=== PATIENT | male | born 1960 | race Caucasian/White ===

== ENCOUNTER 2017-08-29 15:46 | Inpatient (IN) ==
[2017-08-29] MEDS ORDERED: ACETAMINOPHEN 325 MG TABLET PO ONE (16:05)
[2017-08-29] MEDS ORDERED: cefTRIAXone 1 GM VIAL IV ONE (16:12)
[2017-08-29] MEDS ORDERED: 0.9 % SODIUM CHLORIDE 1,000 ML IV ONE ×2 (16:20→17:09)
[2017-08-29 16:48] LABS: Mean Cell Volume 105.2 fL (80.0-100.0); Mean Corpuscular Hemoglobin 35.8 pg (26.0-34.0); Platelet Count 216 K/mcL (140-440); RBC 3.82 M/mcL (4.50-5.90); Red Cell Distribution Width 16.9 % (11.5-14.5)
[2017-08-29 17:13] LABS: Anisocytosis 1+ (NONE SEEN); Eosinophils % (Manual) 2 % (0-7); Lymphocytes % 5 % (15-49); Macrocytosis 2+ (NONE SEEN); Monocytes % (Manual) 4 % (1-12); Platelet Estimate NORMAL (NORMAL); RBC Morphology ABNORM (NORMAL); Segmented Neutrophils % 89 % (38-78)
[2017-08-29] MEDS ORDERED: 0.9 % SODIUM CHLORIDE 250 ML IV SCH ×2 (17:15→20:23)
[2017-08-29] MEDS ORDERED: NOREPINEPHRINE BITARTRATE 16 MG in 0.9 % SODIUM CHLORIDE 234 ML IV SCH (17:15)
[2017-08-29 17:16] LABS: ALT/SGPT 11 U/l (0-40); Albumin 4.2 gm/dL (3.2-5.2); Albumin/Globulin Ratio 1.3 (1.0-2.3); Alkaline Phosphatase 100 U/L (39-117); Blood Urea Nitrogen 36 mg/dl (6-20)
--- NOTE | 2017-08-29 17:22 | XRay Report ---
CLINICAL INFORMATION: Cough COMPARISON: 01/09/[address] FINDINGS: The heart is mildly enlarged but unchanged from 01/09/[address] Double-lumen catheter tip is in the right atrium and stable position. Mediastinum and pulmonary vessels are normal. There is minor bibasilar atelectasis. No effusions IMPRESSION: Mild stable cardiomegaly. Minor bibasilar atelectasis Interpreted and Authenticated by: Amilcar Mcdonald 08/29/17
[2017-08-29] MEDS ORDERED: INSULIN REGULAR, HUMAN 1 UNIT/0.01 ML UNIT IV ONE (17:45)
[2017-08-29] MEDS ORDERED: DEXTROSE 50% 50 ML VIAL IV ONE (17:45)
[2017-08-29] MEDS ORDERED: ALBUTEROL SULFATE 5 MG/ML NEB SOLUTION BOTTLE NEB ONE (17:45)
[2017-08-29] MEDS ORDERED: PIPERACILLIN SODIUM/TAZOBACTAM 2.25 GM in DEXTROSE 5% IN WATER 50 ML IV ONE (18:06)
--- NOTE | 2017-08-29 18:45 | Emergency Department Note ---
Weakness HPI - General Chief complaint: Weakness Stated complaint: Weakness Time Seen by Provider: 08/29/17 15:48 Source: patient Mode of arrival: wheelchair Limitations: no limitations - History of Present Illness HPI Narrative: 57-year-old male presents with cough, shortness of breath, fever, and overall weakness since yesterday. He states that he feels like he has the flu" give me some TheraFlu and I can go home". He states his main concern is that he is really weak and he can barely walk. He is on dialysis and is supposed to get dialysis today. He denies chest pain. He denies history of heart failure, diabetes, hypertension. He states that he was exposed to a gas and that was what caused his kidney failure. He states he has low blood pressure when he goes to dialysis regularly. He states he has also had some dizziness. He has chills and fevers in his temp on arrival is 101.4. He is concerned about getting to dialysis today. Denies abdominal pain, nausea, vomiting, diarrhea. He does not produce urine - Related Data Home Medications Medication Instructions Recorded Confirmed Celebrex 100 mg PO DAILY 08/29/17 08/29/17 HYDROcodone/ACETAMINOPHEN [[place] 2 each PO Q8HP PRN 08/29/17 08/29/17 10-325 Tablet] Sevelamer HCl [Renagel] 4,000 mg PO HS 08/29/17 08/29/17 Sevelamer HCl [Renagel] 400 mg PO DAILY 08/29/17 08/29/17 Tums 1,000 mg PO HS 08/29/17 08/29/17 clonazePAM [Clonazepam] 1 mg PO HS 08/29/17 08/29/17 Allergies Allergy/AdvReac Type Severity Reaction Status Date / Time diphenhydramine AdvReac Unknown Swelling Verified 08/29/17 16:33 [From Benadryl] Midodrine AdvReac Unknown Hypotension Verified 08/29/17 16:35 morphine AdvReac Unknown Vomiting Verified 08/29/17 16:35 Opioids - Morphine Analogues AdvReac Unknown Vomiting Verified 08/29/17 16:35 Procaine [From Novocain] AdvReac Unknown Swelling Verified 08/29/17 16:35 Review of Systems All systems ED: reviewed and negative except as stated. Past Medical History - Past Medical History Medical history: Reports: peripheral artery disease, renal disease (on dialysis) , other (abdominal abscess, hypotension, mini strokes) Psychiatric history: Reports: no psych history Surgical history ED: Reports: other (dialysis catheter placement) Family history: Reports: non-contributory - Social History smoking status: Smokeless tobacco Physical Exam Limitations: no limitations General appearance: alert, in no apparent distress Head: atraumatic Eye: Present: conjunctival injection ENT: normal oropharynx, mucous membranes moist, TM's normal bilaterally Neck: Present: normal inspection, full ROM. Absent: tenderness, lymphadenopathy Chest: Present: normal inspection, symmetric chest wall rise, other (dialysis catheter in place) Respiratory: Present: normal lung sounds bilaterally Cardiovascular: Present: regular rate, normal heart sounds Abdominal: Present: soft, normal bowel sounds. Absent: tenderness Extremities: Present: normal inspection, full ROM. Absent: pedal edema Neurological: Present: alert, oriented X3, CN II-XII intact Psychiatric: Present: normal affect, normal mood Skin: Present: warm, dry, intact Course Vital Signs Temperature 101.4 F H 08/29/17 15:48 Pulse Rate 89 08/29/17 15:48 Respiratory Rate 18 08/29/17 15:48 Blood Pressure 50/33 08/29/17 15:48 Pulse Oximetry (%) 99 08/29/17 15:48 Temperature 99.4 F H 08/29/17 16:55 Pulse Rate 75 08/29/17 20:00 Respiratory Rate 20 08/29/17 20:00 Blood Pressure 109/90 08/29/17 20:00 Pulse Oximetry (%) 96 08/29/17 20:00 Weakness - MDM Narrative Medical decision making narrative: Treated for hypotension with fluids. He did not seem to respond and Levophed drip was started. He was given 1 g of Rocephin at first and then 2.25 of Zosyn later. An arterial line was started to measure blood pressures accurately. He was asymptomatic this whole time and said that his blood pressure has been low his whole life and he has been to multiple specialists and has never gotten better. His hyperkalemia was treated with 10 units of insulin along with dextrose and albuterol nebulizer treatment. This was per Dr. Tony who gave me instructions. I was able to talk with him down at ICU He will be admitted to the ICU - Lab Data Lab results reviewed: Yes I reviewed the patient's lab results. Result diagrams: 08/29/17 16:22 08/29/17 16:22 Lab Results 08/29/17 08/29/17 08/29/17 Range/Units 16:22 16:22 16:22 WBC 12.1 H (4.5-11.0) K/mcL RBC 3.82 L (4.50-5.90) M/mcL Hgb 13.6 (13.5-16.5) g/dL Hct 40.2 L (41.0-55.0) % MCV 105.2 H (80.0-100.0) fL MCH 35.8 H (26.0-34.0) pg MCHC 34.0 (31.0-36.0) g/dL RDW 16.9 H (11.5-14.5) % Plt Count 216 (140-440) K/mcL MPV 8.3 (7.4-10.4) fL Total Counted 100 Seg Neutrophils % 89 H (38-78) % Band Neutrophils % Not Reportable Lymphocytes % 5 L (15-49) % Monocytes % (Manual) 4 (1-12) % Eosinophils % (Manual) 2 (0-7) % Platelet Estimate Normal (NORMAL) RBC Morphology Abnorm A (NORMAL) Anisocytosis 1+ A (NONE SEEN) Macrocytosis 2+ A (NONE SEEN) POC PT (11.9-14.5) sec POC INR (0.9-1.2) VBG Lactic Acid 4.3 H* (0.5-2.2) mmol/L Sodium 135 (133-145) mmol/L Potassium 6.9 H* (3.3-5.1) mmol/L Chloride 92 L (96-108) mmol/L Carbon Dioxide 20 L (22-30) mmol/L Anion Gap 23.0 H (8-16) BUN 36 H (6-20) mg/dl Creatinine 8.7 H* (0.7-1.2) mg/dl GFR Calculation 6 Glucose 95 (70-105) mg/dL Calcium 8.1 L (8.6-10.4) mg/dl Total Bilirubin 0.5 (0.0-1.0) mg/dL AST 7 (0-37) U/l ALT 11 (0-40) U/l Alkaline Phosphatase 100 (39-117) U/L NT-Pro-B Natriuret Pep (0-125) pg/ml Total Protein 7.4 (5.9-8.4) gm/dL Albumin 4.2 (3.2-5.2) gm/dL Globulin 3.2 (2.2-3.7) gm/dL Albumin/Globulin Ratio 1.3 (1.0-2.3) Procalcitonin (<0.10) ng/mL 08/29/17 08/29/17 08/29/17 Range/Units 16:23 16:26 18:46 WBC (4.5-11.0) K/mcL RBC (4.50-5.90) M/mcL Hgb (13.5-16.5) g/dL Hct (41.0-55.0) % MCV (80.0-100.0) fL MCH (26.0-34.0) pg MCHC (31.0-36.0) g/dL RDW (11.5-14.5) % Plt Count (140-440) K/mcL MPV (7.4-10.4) fL Total Counted Seg Neutrophils % (38-78) % Band Neutrophils % Lymphocytes % (15-49) % Monocytes % (Manual) (1-12) % Eosinophils % (Manual) (0-7) % Platelet Estimate (NORMAL) RBC Morphology (NORMAL) Anisocytosis (NONE SEEN) Macrocytosis (NONE SEEN) POC PT 14.5 (11.9-14.5) sec POC INR 1.2 (0.9-1.2) VBG Lactic Acid (0.5-2.2) mmol/L Sodium (133-145) mmol/L Potassium (3.3-5.1) mmol/L Chloride (96-108) mmol/L Carbon Dioxide (22-30) mmol/L Anion Gap (8-16) BUN (6-20) mg/dl Creatinine (0.7-1.2) mg/dl GFR Calculation Glucose (70-105) mg/dL Calcium (8.6-10.4) mg/dl Total Bilirubin (0.0-1.0) mg/dL AST (0-37) U/l ALT (0-40) U/l Alkaline Phosphatase (39-117) U/L NT-Pro-B Natriuret Pep 601.4 H (0-125) pg/ml Total Protein (5.9-8.4) gm/dL Albumin (3.2-5.2) gm/dL Globulin (2.2-3.7) gm/dL Albumin/Globulin Ratio (1.0-2.3) Procalcitonin 0.71 (<0.10) ng/mL - Radiology Data Radiology results reviewed: Yes I reviewed the patient's radiology results. IMPRESSION: Mild stable cardiomegaly. Minor bibasilar atelectasis Disposition Pt seen by MANAGER LAW/PA only: No Clinical Impression: Hyperkalemia, Sepsis Disposition: Xfer As Inpt ([facility]) Condition: Fair Referrals: Alexei Langley [Primary Care Provider] -
[2017-08-29] MEDS ORDERED: HEPARIN/NS 500 ML IV SCH ×2 (19:00→20:23)
--- NOTE | 2017-08-29 19:42 | Internal Med History&Physical ---
Medical - H&P: HPI Patient information: Note initiated : 08/29/17 at 6:47 pm Service Date, if different from initiated Date: [] Patient: Jd Morris a 57 y/o M admitted on for Weakness. Chief Complaint: [] History of present illness: Mr. Morris is a 57 year old M with a history of ESRD on HD, peripheral vascular disease with labile blood pressures, epilepsy not on antiepileptics and TIA who was in his usual state of health until developing a productive cough, generalized weakness and chills. He was too weak to get dialysis today. He was brought in with a fever of 101.4 and found to have a potassium of 6.9, lactate of 4.3. His systolic blood pressure was as low as 50 in the ED and he was started on levophed after receiving 2 L of IV fluids in the ED. He was treated with vancomycin and ceftriaxone in the received a dose of Zosyn prior to transfer to ICU. He endorses rhinorrhea, sneezing and sore throat. His ride to HD this week had similar symptoms. Anesthesia was called for central line placement and are line placement. Patient declined central line placement as he was concerned about getting an infection. We discussed the risks and benefits of having adequate vascular access, especially aas the patient requests full code status. The patient ultimately consented to arterial line placement for blood pressure monitoring and, after discussion with Dr. Tony, his HD catheter will be used for pressor administration. He has had labile blood pressures with systolics ranging from 50 to 200s. Per discussion with Dr. Tony, the patient likely has some underlying peripheral vascular disease and stenoses causing erroneous readings, but it sounds like the anatomic reason has not been fully delineated as of yet. He is dizzy and weak now and his current blood pressure is likely a true reading. He did not receive a flu shot this year. He states influenza vaccination causes vomiting and diarrhea and him. He received Pneumovax in 2009. He requests not to receive vancomycin and to receive gentamicin instead. We discussed the risks of irreversible ototoxicity in the setting of renal impairment. He states that he was treated with vancomycin for PD-associated peritonitis which actually turned out to be a fungal action and vancomycin did not think to help him. He is willing to take linezolid. Dr. Tony reports that the patient, with history of peritonitis, has had a sterile fluid collection over his liver. The patient denies any abdominal symptoms whatsoever. Review of systems: Please see the HPI. Otherwise a comprehensive review of systems is negative or noncontributory to the chief complaint. Medical - H&P: H Medical history: End-stage renal disease on hemodialysis. He dialyzes through a right sided HD catheter that has been in place since 2009 on Thursday, , Thursday. Followed by Dr. Tony. Prior history of peritoneal dialysis with associated peritonitis with persistent sterile fluid collection over the liver Labile blood pressures with reported history of peripheral vascular disease Epilepsy, not on antiepileptic medication History of TIAs Surgical history: Hernia repair Multiple procedures for catheter placements Pertinent family history: Negative for renal disease. Social history: He lives alone. 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 He denies tobacco or recreational drug use. He rarely drinks alcohol. He is a full code with the exception that he will not accept intubation with an endotracheal tube, but only an LMA. He states his [employer] veterans service officer, Shyla Spencer , or his oldest granddaughter, Marilyn Quintana, would be his surrogate medical decision makers. He does not know how to get a hold of his granddaughter. Medical - H&P: Meds Home Medications Medication Instructions Recorded Confirmed Type Celebrex 100 mg PO DAILY 08/29/17 08/29/17 History HYDROcodone/ACETAMINOPHEN [[place] 2 each PO Q8HP PRN 08/29/17 08/29/17 History 10-325 Tablet] Sevelamer HCl [Renagel] 4,000 mg PO HS 08/29/17 08/29/17 History Sevelamer HCl [Renagel] 400 mg PO DAILY 08/29/17 08/29/17 History Tums 1,000 mg PO HS 08/29/17 08/29/17 History clonazePAM [Clonazepam] 1 mg PO HS 08/29/17 08/29/17 History Allergies Allergy/AdvReac Type Severity Reaction Status Date / Time diphenhydramine AdvReac Unknown Swelling Verified 08/29/17 16:33 [From Benadryl] Midodrine AdvReac Unknown Hypotension Verified 08/29/17 16:35 morphine AdvReac Unknown Vomiting Verified 08/29/17 16:35 Opioids - Morphine Analogues AdvReac Unknown Vomiting Verified 08/29/17 16:35 Procaine [From Novocain] AdvReac Unknown Swelling Verified 08/29/17 16:35 Medical - H&P: Exam - Constitutional Vitals: Temp Pulse Resp BP Pulse Ox 99.4 F H 58 L 21 98/64 95 08/29/17 16:55 08/29/17 18:05 08/29/17 18:05 08/29/17 18:05 08/29/17 18:05 Exam: General: No acute distress, nontoxic. He is wearing continuous albuterol treatment for hyperkalemia when I walk in. He is sneezing throughout the exam. HEENT: Normocephalic atraumatic. PERRLA. Mucous members are moist. External ear exam is normal. Conjunctivae are clear. Sclerae are anicteric. He has a full todd. Neck: No palpable adenopathy or thyromegaly. Inspection is limited secondary to todd CV: Regular rate and rhythm. ? Soft systolic murmur Pulmonary: No acute respiratory distress. Able to speak in complete sentences. Lungs are clear to auscultation bilaterally. Abdomen: Soft, nondistended, nontender. Normal bowel tones. Extremity: No clubbing, cyanosis or edema. He has a blood pressure cuff on his left ankle. Skin: Warm and dry. No rash. The area around his dialysis catheter is without erythema or induration. Psych: irritable Neuro: Alert and oriented 3. Cranial nerves II through XII are intact. No gross focal motor or sensory deficits. Medical - H&P: Reslt - Labs CBC & Chem 7: 08/29/17 16:22 08/29/17 16:22 Labs: Short CBC 08/29/17 Range/Units 16:22 WBC 12.1 H (4.5-11.0) K/mcL Hgb 13.6 (13.5-16.5) g/dL Hct 40.2 L (41.0-55.0) % Plt Count 216 (140-440) K/mcL BMP 08/29/17 16:22 Sodium 135 Potassium 6.9 H* Chloride 92 L Carbon Dioxide 20 L BUN 36 H Creatinine 8.7 H* Glucose 95 Calcium 8.1 L Liver Function 08/29/17 Range/Units 16:22 Total Bilirubin 0.5 (0.0-1.0) mg/dL AST 7 (0-37) U/l ALT 11 (0-40) U/l Alkaline Phosphatase 100 (39-117) U/L Albumin 4.2 (3.2-5.2) gm/dL - EKG Data Prior EKG available for review: no EKG comments: EKG shows sinus rhythm with ST depression in the inferolateral leads. There are no peaked T waves. There is no QRS widening 08/29/17 20:36 Medical - H&P: A/P - Narrative A/P Narrative: #Septic shock with lactic acidosis -Etiologies include respiratory or vascular source. By, history he has a viral pulmonary infection with his sneezing, sore throat and productive cough. CXR negative for pneumonia. HD catheter is due to be replaced 09/09; has been in place since 2009 per patient. -PCT 0.71. Empiric Zosyn for now; pt is refusing vanc. Will order linezolid. s/p CTX in ED -Lactate 4.3; trend. F/u BC -D/W Dr. Tony. Attempt to limit fluids. His history of labile BP (likely 2/ 2 PVD) confounds picture and will need to go off sx. Currently asymptomatic with MAP 50. Will make this our goal. Pt has a history of sterile fluid collection over liver as well as h/o peritonitis 2/2 PD. No abdominal sx--doubt this is source. -Admit to ICU. Anesthesia has graciously agreed to place art line. Pt is quite directive in his care and is refusing a central line for fear of line infection. Per Dr. Tony, OK to use HD catheter for pressors. #Hyperkalemia -likely worsened by acidosis. No EKG changes. Missed HD today d/t illness. s/ p D50/insulin in ED. To get emergent HD tonight. D/W Dr. Tony #Epilepsy--h/o GTC, petit mal and what sounds like partial seizures per pt. Not on AEDs; still driving. PRN Ativan ordered. Monitor. #ESRD--HD TThSat. H/o peritoneal dialysis in the past. Followed by Dr. Tony. #DVT prophylaxis--SC heparin #CODE STATUS: Full code with the exception that he does not want to be intubate with an endotracheal tube, only an LMA. He designates his [employer] binder caser, Shylacarlos Knutsonradha, as his surrogate MDM ([phone]).
--- NOTE | 2017-08-29 19:50 | Procedure Note ---
Procedures - Arterial Line Consent obtained: written consent Time out performed: Yes Size (Gauge): 20 Technique used: guide wire technique Post-Procedure: dry sterile dressing placed, easily flushed, waveform correlation Patient tolerated procedure: well, no complications Complications: none Site: left, radial
[2017-08-29] MEDS ORDERED: SENNOSIDES 1 TABLET PO PRN (20:23)
[2017-08-29] MEDS ORDERED: ALBUTEROL SULFATE 2.5 MG/3 ML NEBULIZER NEB PRN (20:23)
[2017-08-29] MEDS ORDERED: ONDANSETRON 4 MG/2 ML VIAL IV PRN (20:23)
[2017-08-29] MEDS: 0.9 % SODIUM CHLORIDE 1,000 ML IV SCH (20:46)
[2017-08-29] MEDS: LINEZOLID 600 MG TABLET PO SCH (21:00)
[2017-08-29] MEDS: HEPARIN 5,000 UNIT/ML VIAL SQ SCH (21:00)
[2017-08-29] MEDS: NOREPINEPHRINE BITARTRATE 16 MG in DEXTROSE 5% IN WATER 234 ML IV SCH (21:12)
--- NOTE | 2017-08-29 21:30 | Emergency Department Note ---
ED Note Addendum Note Addendum: I saw this patient with Meenakshi Gibson PA-C. I agree with her evaluation management documentation. In particular note he was treated for Sirs/sepsis and levophed was started for hypotension after fluid boluses did not make a difference. Blood cultures done and antibiotic started. hyperkalemia was treated per Dr. Tony's instructions
[2017-08-29] MEDS: 0.9 % SODIUM CHLORIDE 10 ML SYRINGE IV SCH (22:02)
[2017-08-30] MEDS: ACETAMINOPHEN 325 MG TABLET PO PRN ×5 (01:02→20:47)
[2017-08-30] MEDS: LORazepam 2 MG/ML VIAL IV PRN ×2 (01:03→23:32)
[2017-08-30 05:33] LABS: Mean Cell Volume 104.8 fL (80.0-100.0); Mean Corpuscular HGB Conc 33.7 g/dL (31.0-36.0); Mean Corpuscular Hemoglobin 35.4 pg (26.0-34.0); Platelet Count 207 K/mcL (140-440); RBC 3.63 M/mcL (4.50-5.90); Red Cell Distribution Width 16.4 % (11.5-14.5)
[2017-08-30 06:05] LABS: Anisocytosis 1+ (NONE SEEN); Lymphocytes % 6 % (15-49); Macrocytosis 1+ (NONE SEEN); Monocytes % (Manual) 14 % (1-12); Platelet Estimate NORMAL (NORMAL); RBC Morphology ABNORM (NORMAL); Segmented Neutrophils % 76 % (38-78)
[2017-08-30 06:06] LABS: ALT/SGPT 9 U/l (0-40); Albumin 3.6 gm/dL (3.2-5.2); Albumin/Globulin Ratio 1.3 (1.0-2.3); Alkaline Phosphatase 89 U/L (39-117); Blood Urea Nitrogen 16 mg/dl (6-20)
--- NOTE | 2017-08-30 07:58 | Internal Med Progress Note ---
Medical - PN: Subj Patient information: Note initiated : 08/30/17 at 7:56 am Service Date, if different from initiated Date: [] Patient: Jd Morris a 57 y/o M admitted on 08/29/17 for Weakness. Chief Complaint: [] Interval history: History of present illness: Mr. Morris is a 57 year old M with a history of ESRD on HD, peripheral vascular disease with labile blood pressures, epilepsy not on antiepileptics and TIA who was in his usual state of health until developing a productive cough, generalized weakness and chills. He was too weak to get dialysis today. He was brought in with a fever of 101.4 and found to have a potassium of 6.9, lactate of 4.3. His systolic blood pressure was as low as 50 in the ED and he was started on levophed after receiving 2 L of IV fluids in the ED. He was treated with vancomycin and ceftriaxone in the received a dose of Zosyn prior to transfer to ICU. He endorses rhinorrhea, sneezing and sore throat. His ride to HD this week had similar symptoms. Anesthesia was called for central line placement and are line placement. Patient declined central line placement as he was concerned about getting an infection. We discussed the risks and benefits of having adequate vascular access, especially aas the patient requests full code status. The patient ultimately consented to arterial line placement for blood pressure monitoring and, after discussion with Dr. Tony, his HD catheter will be used for pressor administration. He has had labile blood pressures with systolics ranging from 50 to 200s. Per discussion with Dr. Tony, the patient likely has some underlying peripheral vascular disease and stenoses causing erroneous readings, but it sounds like the anatomic reason has not been fully delineated as of yet. He is dizzy and weak now and his current blood pressure is likely a true reading. He did not receive a flu shot this year. He states influenza vaccination causes vomiting and diarrhea and him. He received Pneumovax in 2009. He requests not to receive vancomycin and to receive gentamicin instead. We discussed the risks of irreversible ototoxicity in the setting of renal impairment. He states that he was treated with vancomycin for PD-associated peritonitis which actually turned out to be a fungal action and vancomycin did not think to help him. He is willing to take linezolid. Dr. Tony reports that the patient, with history of peritonitis, has had a sterile fluid collection over his liver. The patient denies any abdominal symptoms whatsoever. August 30: Had dialysis last night with resolution of his hyperkalemia and lactic acidosis. He is feeling much better today, requiring Levophed 20 g currently. He had some bradycardia to the 20-40s overnight, but actually had an increase of blood pressure with that. He has refusing his DVT prophylaxis with heparin. He required oxygen overnight, but is currently on room air. ROS: no cp or fever - Constitutional Vitals: Vital Signs Temp Pulse Resp BP Pulse Ox 101.3 F H 46 L 15 99/42 97 08/30/17 04:00 08/30/17 06:09 08/30/17 06:09 08/30/17 06:00 08/30/17 06:09 Period Temp Pulse Resp BP Sys/Cruz Pulse Ox Last 24 Hr 99.3 F-101.4 F 32-89 12-26 50-161/19-149 80-100 Intake and Output 08/29/17 08/30/17 08/30/17 21:59 05:59 13:59 Intake Total 2095 318 / 318 Output Total 0 / 0 Balance 2095 318 / 318 Weight 191 lb 12.8 oz Intake & Output: Intake & Output 08/29/17 08/30/17 08/30/17 21:59 05:59 13:59 Intake Total 2095 318 / 318 Output Total 0 / 0 Balance 2095 318 / 318 Weight 191 lb 12.8 oz Intake: IV 2095 78 / 78 Sodium Chloride 0.9% 1,000 ml @ 1999 / 1999 Wide Open IV [facility] Rx#: [id number] Levophed 16 mg In Sodium 37 / 37 Chloride 0.9% 234 ml @ 10 MCG/ MIN 9.37 mls/hr IV Q24H [facility] Rx# :[id number] Levophed 16 mg In Dextrose 5% 78 / 78 in Water 234 ml @ 10 MCG/MIN 9. 37 mls/hr IV Q24H [facility] Rx#: [id number] Zosyn 2.25 gm In Dextrose 5% in 50 / 50 Water 50 ml @ 100 mls/hr IV ONCE ONE Rx#:[id number] Oral 240 / 240 Output: Hemodialysis UF 0 / 0 Exam: General: No acute distress, nontoxic. HEENT: Normocephalic atraumatic. PERRLA. MMM. External ear exam is normal. Conjunctivae are clear. Sclerae are anicteric. He has a full todd. CV: Regular rate and rhythm. Pulmonary: No acute respiratory distress. Able to speak in complete sentences. Lungs are clear to auscultation bilaterally. Abdomen: Soft, nondistended, nontender. Normal bowel tones. Extremity: No clubbing, cyanosis or edema. Skin: Warm and dry. No rash. Neuro: Alert and oriented 3. Cranial nerves II through XII are intact. No gross focal motor or sensory deficits. Medical - PN: Obj Da - Labs CBC & Chem 7: 08/30/17 03:42 08/30/17 03:42 Labs: Abnormal Lab Results 08/30/17 08/30/17 08/29/17 03:42 03:42 16:26 WBC 12.5 H RBC 3.63 L Hgb 12.8 L Hct 38.0 L MCV 104.8 H MCH 35.4 H RDW 16.4 H Seg Neutrophils % Lymphocytes % 6 L Monocytes % (Manual) 14 H Reactive Lymphocytes 4 H RBC Morphology Abnorm A Anisocytosis 1+ A Macrocytosis 1+ A VBG Lactic Acid Potassium Chloride Carbon Dioxide Anion Gap 18.0 H BUN Creatinine 4.9 H Calcium 7.9 L NT-Pro-B Natriuret Pep 601.4 H 08/29/17 08/29/17 08/29/17 16:22 16:22 16:22 WBC 12.1 H RBC 3.82 L Hgb Hct 40.2 L MCV 105.2 H MCH 35.8 H RDW 16.9 H Seg Neutrophils % 89 H Lymphocytes % 5 L Monocytes % (Manual) Reactive Lymphocytes RBC Morphology Abnorm A Anisocytosis 1+ A Macrocytosis 2+ A VBG Lactic Acid 4.3 H* Potassium 6.9 H* Chloride 92 L Carbon Dioxide 20 L Anion Gap 23.0 H BUN 36 H Creatinine 8.7 H* Calcium 8.1 L NT-Pro-B Natriuret Pep Meds: Medications Acetaminophen (Tylenol) 650 mg PO Q4-6HP PRN PRN Reason: PAIN/FEVER > 101 Last Admin: 08/30/17 03:55 Dose: 650 mg Albuterol Sulfate (Ventolin) 2.5 mg NEB Q4HP PRN PRN Reason: Shortness Of Breath Heparin Sodium (Porcine) (Heparin) 5,000 unit SQ Q12 [facility] Last Admin: 08/29/17 21:00 Dose: Not Given Heparin Sodium/Sodium Chloride (Heparin/Ns) 500 mls @ 0 mls/hr IV .Q0M [facility]; KVO PRN Reason: Protocol Sodium Chloride (Sodium Chloride 0.9%) 1,000 mls @ 20 mls/hr IV .Q24H [facility] Last Admin: 08/29/17 20:46 Dose: 10 mls/hr Piperacillin Sod/Tazobactam (Sod 2.25 gm/ Dextrose) 50 mls @ 100 mls/hr IV Q12H [facility] Norepinephrine Bitartrate 16 (mg/ Dextrose) 250 mls @ 9.37 mls/hr IV Q24H [facility]; 10 MCG/MIN PRN Reason: Protocol Last Admin: 08/29/17 21:12 Dose: Not Given Linezolid (Zyvox) 600 mg PO Q12 [facility] Last Admin: 08/29/17 21:00 Dose: 600 mg Lorazepam (Ativan) 1 mg IV Q2HP PRN PRN Reason: Seizure Activity Ondansetron HCl (Zofran) 4 mg IV Q4-6HP PRN PRN Reason: Nausea And Vomiting Senna (Senokot) 1 tab PO HSP PRN PRN Reason: Constipation Sodium Chloride (Saline Flush) 10 ml IV Q8 [facility] Last Admin: 08/29/17 22:02 Dose: Not Given Medical - PN: A/P - Time Spent With Patient Total time spent is greater than 50% in coordination of care (as documented) at patient's floor/unit and/or counseling patient: - Narrative A/P Narrative: #Septic shock with lactic acidosis -Etiologies include respiratory or vascular source. By, history he has a viral pulmonary infection with his sneezing, sore throat and productive cough. CXR negative for pneumonia. HD catheter is due to be replaced 09/09; has been in place since 2009 per patient. -PCT 0.71. s/p CTX in ED. Pt is refusing vanco. Empiric linezolid and Zosyn. -Lactate 4.3-->1.2. F/u BC -D/W Dr. Tony on admit Attempt to limit fluids. His history of labile BP ( likely 2/2 PVD) confounds picture and will need to go off sx. Goal MAP 60. Pt has a history of sterile fluid collection over liver as well as h/o peritonitis 2/2 PD. No abdominal sx--doubt this is source. -Pt is quite directive in his care and is refusing a central line for fear of line infection. Per Dr. Tony, OK to use HD catheter for pressors. -Wean pressors as able. If not able to wean to <15mcg, will give 1L bolus. Pt not hypoxic. #Bradycardia, asymptomatic--mostly nocturnal so far. Not on AV brody blocking agents. Monitor. May benefit from sleep study as OP. #Hyperkalemia, resolved. s/p urgent HD on #Epilepsy--h/o GTC, petit mal and what sounds like partial seizures per pt. Not on AEDs; still driving. PRN Ativan ordered. Monitor. #ESRD--HD TThSat. H/o peritoneal dialysis in the past. Followed by Dr. Tony. #DVT prophylaxis--SC heparin #CODE STATUS: Full code with the exception that he does not want to be intubated with an endotracheal tube, only an LMA. He designates his [facility] therapeutic case manager, Shyla Spencer, as his surrogate MDM ([phone]). Medical - PN: Qual - VTE Deep Vein Thrombosis/Pulmonary Embolism Present on Admission: Yes Procedures - Arterial Line Size (Gauge): 20
[2017-08-30] MEDS: 0.9 % SODIUM CHLORIDE 10 ML SYRINGE IV SCH ×3 (08:06→22:52)
[2017-08-30] MEDS: PIPERACILLIN SODIUM/TAZOBACTAM 2.25 GM in DEXTROSE 5% IN WATER 50 ML IV SCH ×2 (08:09→21:17)
[2017-08-30] MEDS: LINEZOLID 600 MG TABLET PO SCH ×3 (10:09→21:19)
[2017-08-30] MEDS: HEPARIN 5,000 UNIT/ML VIAL SQ SCH ×2 (10:14→21:11)
--- NOTE | 2017-08-30 13:18 | Nephrology Progress Note ---
Subjective Patient information: Note initiated : 08/29/17 at 6:15 pm Service Date, if different from initiated Date: [] Patient: Jd Morris 57 y/o M admitted on 08/29/17 for Weakness. Chief Complaint: [Admitted with fever, chills and weakness] Objective - Vital Signs Vital signs: Vital Signs Temp Pulse Resp BP Pulse Ox 08/30/17 08:32 57 L 16 94 08/30/17 08:01 99.4 F H 58 L 19 90/38 92 08/30/17 07:00 51 L 16 105/44 94 08/30/17 06:39 50 L 17 92/45 95 08/30/17 06:09 46 L 15 97 08/30/17 06:00 51 L 16 99/42 95 08/30/17 05:13 56 L 19 96 08/30/17 05:00 58 L 14 82/41 95 08/30/17 04:15 63 12 99 08/30/17 04:00 101.3 F H 72 16 82/44 97 08/30/17 03:55 101.3 F H 08/30/17 03:20 65 19 96 08/30/17 03:00 65 25 H 100/40 95 08/30/17 02:03 73 22 94 08/30/17 02:01 71 21 95/42 95 08/30/17 02:00 94 08/30/17 01:15 73 24 H 100 08/30/17 01:02 101.0 F H 08/30/17 01:00 101.0 F H 79 18 85/68 100 08/30/17 00:50 101 F H 70 117/56 08/30/17 00:19 65 110/56 08/30/17 00:16 99.3 F H 26 H 08/30/17 00:00 65 22 58/42 100 08/29/17 23:51 70 117/59 08/29/17 23:32 65 21 100 08/29/17 23:20 66 118/60 08/29/17 23:04 67 19 91/44 99 08/29/17 23:01 99.3 F H 66 20 161/149 100 08/29/17 22:54 70 113/60 08/29/17 22:22 62 114/60 08/29/17 22:02 99.3 F H 17 110/55 08/29/17 21:50 99.3 F H 60 112/60 08/29/17 21:27 70 22 100 08/29/17 21:03 63 13 105/80 98 17 20:54 20 91 1617 20:47 80 17 86/40 92 08/29/17 20:38 99.8 F H 64 15 92/35 98 08/29/17 20:27 99.4 F H 75 20 109/90 96 08/29/17 20:25 109/90 17 20:10 100 08/29/17 20:00 75 20 109/90 96 08/29/17 19:59 74 20 96 08/29/17 19:46 80 17 92/33 96 08/29/17 19:31 77 16 96/33 95 08/29/17 19:16 78 17 103/36 97 08/29/17 19:00 64 15 93/43 97 08/29/17 18:46 21 73/47 17 18:31 18 77/43 17 18:28 76 14 86/31 98 08/29/17 18:18 65 17 80/43 98 1617 18:16 62 15 78/31 98 08/29/17 18:12 60 18 70/36 98 17 18:05 58 L 21 98/64 95 08/29/17 18:01 58 L 20 74/27 96 17 17:49 19 76/32 1617 17:47 18 84/38 1617 17:46 17 74/40 17 17:42 18 78/36 1617 17:36 56 L 18 66/36 98 1617 17:09 32 L 20 80 L 1617 17:03 19 73/34 1617 16:55 99.4 F H 1617 16:47 20 50/24 16/17 16:45 80 1617 16:37 70 18 68/54 97 16/17 16:32 72 17 58/26 96 1617 16:29 19 71/27 1617 16:27 73 23 H 54/20 98 12/16/17 16:26 26 H 58/19 08/29/17 16:16 76 24 H 54/19 100 08/29/17 16:14 20 55/34 08/29/17 16:10 101.0 F H 08/29/17 15:48 101.4 F H 89 18 50/33 99 Intake and Output 08/29/17 08/30/17 08/30/17 21:59 05:59 13:59 Intake Total 2095 318 / 318 50 / 50 Output Total 0 / 0 Balance 2095 318 / 318 50 / 50 Intake: IV 2095 78 / 78 50 / 50 Sodium Chloride 0.9% 1,000 ml @ 1999 / 1999 Wide Open IV [facility] Rx#: [id number] Levophed 16 mg In Sodium 37 / 37 Chloride 0.9% 234 ml @ 10 MCG/ MIN 9.37 mls/hr IV Q24H [facility] Rx# :[id number] Levophed 16 mg In Dextrose 5% 78 / 78 in Water 234 ml @ 10 MCG/MIN 9. 37 mls/hr IV Q24H [facility] Rx#: [id number] Zosyn 2.25 gm In Dextrose 5% in 50 / 50 50 / 50 Water 50 ml @ 100 mls/hr IV Q12H [facility] Rx#:[id number] Oral 240 / 240 Output: Hemodialysis UF 0 / 0 Other: Weight 191 lb 12.8 oz Intake & Output: Intake & Output 08/29/17 08/30/17 08/30/17 21:59 05:59 13:59 Intake Total 2095 318 / 318 50 / 50 Output Total 0 / 0 Balance 2095 318 / 318 50 / 50 Weight 191 lb 12.8 oz Intake: IV 2095 78 / 78 50 / 50 Sodium Chloride 0.9% 1,000 ml @ 1999 / 1999 Wide Open IV [facility] Rx#: [id number] Levophed 16 mg In Sodium 37 / 37 Chloride 0.9% 234 ml @ 10 MCG/ MIN 9.37 mls/hr IV Q24H [facility] Rx# :[id number] Levophed 16 mg In Dextrose 5% 78 / 78 in Water 234 ml @ 10 MCG/MIN 9. 37 mls/hr IV Q24H [facility] Rx#: [id number] Zosyn 2.25 gm In Dextrose 5% in 50 / 50 50 / 50 Water 50 ml @ 100 mls/hr IV Q12H [facility] Rx#:[id number] Oral 240 / 240 Output: Hemodialysis UF 0 / 0 - General Appearance General appearance: well-developed EENT: ATNC Neck: no JVD Respiratory: no kyphosis Cardiology: no murmurs Gastrointestinal: normoactive bowel sounds Integumentary: no rash Neurologic: no focal deficit Musculoskeletal: no deformities - Lab 08/30/17 03:42 08/30/17 03:42 Most recent lab results Calcium 7.9 mg/dl (8.6-10.4) L 08/30/17 03:42 Assessment and Plan (1) ESRD (end stage renal disease) on dialysis Status: Acute Comment: Has hyperkalemia. Will have dialysis tonight with a 1 K bath. Sepsis. Source not yet identified.
[2017-08-30] MEDS ORDERED: NOREPINEPHRINE BITARTRATE 16 MG in DEXTROSE 5% IN WATER 234 ML IV SCH (17:15)
[2017-08-30] MEDS ORDERED: guaiFENesin 600 MG TAB.SR.12H PO ONE (19:04)
[2017-08-30] MEDS: NOREPINEPHRINE BITARTRATE 16 MG in DEXTROSE 5% IN WATER 234 ML IV SCH (19:44)
[2017-08-30] MEDS: 0.9 % SODIUM CHLORIDE 1,000 ML IV SCH (21:11)
[2017-08-31] MEDS: ACETAMINOPHEN 325 MG TABLET PO PRN ×3 (01:15→21:21)
[2017-08-31] MEDS: 0.9 % SODIUM CHLORIDE 10 ML SYRINGE IV SCH ×3 (05:05→21:18)
[2017-08-31 06:07] LABS: Mean Cell Volume 104.4 fL (80.0-100.0); Mean Corpuscular HGB Conc 33.9 g/dL (31.0-36.0); Mean Corpuscular Hemoglobin 35.4 pg (26.0-34.0); Platelet Count 172 K/mcL (140-440); Red Cell Distribution Width 16.6 % (11.5-14.5)
[2017-08-31 07:03] LABS: ALT/SGPT 8 U/l (0-40); Albumin 2.9 gm/dL (3.2-5.2); Alkaline Phosphatase 81 U/L (39-117); Blood Urea Nitrogen 31 mg/dl (6-20)
[2017-08-31] MEDS: HEPARIN 5,000 UNIT/ML VIAL SQ SCH ×2 (07:46→21:20)
[2017-08-31 08:16] LABS: Anisocytosis 1+ (NONE SEEN); Band Neutrophils % 1 % (0-10); Eosinophils % (Manual) 2 % (0-7); Lymphocytes % 7 % (15-49); Macrocytosis 1+ (NONE SEEN); Metamyelocytes % 1 % (0-0); Monocytes % (Manual) 5 % (1-12); Platelet Estimate NORMAL (NORMAL); RBC Morphology ABNORM (NORMAL); Segmented Neutrophils % 82 % (38-78)
[2017-08-31] MEDS: PIPERACILLIN SODIUM/TAZOBACTAM 2.25 GM in DEXTROSE 5% IN WATER 50 ML IV SCH ×2 (09:00→21:22)
--- NOTE | 2017-08-31 10:19 | Nephrology Progress Note ---
Subjective Patient information: Note initiated : 08/31/17 at 10:17 am Service Date, if different from initiated Date: [] Patient: Jd Morris 57 y/o M admitted on 08/29/17 for Weakness. Chief Complaint: [ Feels "bloated" BP still low on levofed. No other complaints. ] Objective - Vital Signs Vital signs: Vital Signs Temp Pulse Resp BP Pulse Ox 08/31/17 07:01 17 83/43 93 08/31/17 06:04 58 L 95 08/31/17 06:01 57 L 84/47 93 08/31/17 05:04 51 L 97 08/31/17 05:01 51 L 87/36 97 08/31/17 04:16 54 L 97 08/31/17 04:00 49 L 9 L 90/35 98 08/31/17 03:01 53 L 18 96 08/31/17 03:00 54 L 14 87/36 95 08/31/17 02:18 47 L 17 98 08/31/17 02:01 50 L 23 H 76/63 96 08/31/17 01:14 50 L 16 98 08/31/17 01:03 98.5 F 45 L 16 96 08/31/17 00:25 49 L 16 100 08/31/17 00:00 45 L 17 77/64 96 08/30/17 23:08 53 L 22 97 08/30/17 23:03 99.8 F H 54 L 13 83/28 98 08/30/17 21:32 99.9 F H 08/30/17 21:00 53 L 15 87/35 99 08/30/17 20:47 101.0 F H 08/30/17 20:03 48 L 16 81/33 99 08/30/17 19:47 43 L 15 112/50 98 08/30/17 18:01 101 F H 11 L 104/40 08/30/17 17:00 54 L 12 97/34 98 08/30/17 16:56 54 L 16 99 08/30/17 16:01 101 F H 51 L 18 99 08/30/17 15:00 61 19 96/48 99 08/30/17 14:01 62 18 90/39 97 08/30/17 13:30 19 96 08/30/17 13:02 50 L 15 99/56 98 08/30/17 12:02 99.8 F H 58 L 20 98 08/30/17 11:00 55 L 19 93/48 98 Intake and Output 08/30/17 08/31/17 08/31/17 21:59 05:59 13:59 Intake Total 1200 / 1200 114 / 114 Balance 1200 / 1200 114 / 114 Intake: IV 114 / 114 Levophed 16 mg In Dextrose 5% 64 / 64 in Water 234 ml @ 10 MCG/MIN 9. 37 mls/hr IV Q24H [facility] Rx#: [id number] Zosyn 2.25 gm In Dextrose 5% in 50 / 50 Water 50 ml @ 100 mls/hr IV Q12H [facility] Rx#:[id number] Oral 1200 / 1200 Other: Weight 189 lb 12.8 oz Intake & Output: Intake & Output 08/30/17 08/31/17 08/31/17 21:59 05:59 13:59 Intake Total 1200 / 1200 114 / 114 Balance 1200 / 1200 114 / 114 Weight 189 lb 12.8 oz Intake: IV 114 / 114 Levophed 16 mg In Dextrose 5% 64 / 64 in Water 234 ml @ 10 MCG/MIN 9. 37 mls/hr IV Q24H [facility] Rx#: [id number] Zosyn 2.25 gm In Dextrose 5% in 50 / 50 Water 50 ml @ 100 mls/hr IV Q12H [facility] Rx#:[id number] Oral 1200 / 1200 - General Appearance General appearance: well-developed EENT: ATNC Neck: no JVD Respiratory: no kyphosis Cardiology: no murmurs Gastrointestinal: normoactive bowel sounds Integumentary: no rash Neurologic: no focal deficit Musculoskeletal: no deformities - Lab 08/31/17 03:42 08/31/17 03:42 Most recent lab results Calcium 7.7 mg/dl (8.6-10.4) L 08/31/17 03:42 Assessment and Plan (1) ESRD (end stage renal disease) on dialysis Status: Acute Comment: Hyperkalemia. Will have dialysis tonight with a 1 K bath and also try to take more fluid off. He will be continued on pressors. Sepsis. Source not yet identified.
[2017-08-31] MEDS: LINEZOLID 600 MG TABLET PO SCH ×2 (10:53→21:19)
[2017-08-31] MEDS: guaiFENesin 600 MG TAB.SR.12H PO PRN ×2 (10:55→21:18)
--- NOTE | 2017-08-31 11:46 | Internal Med Progress Note ---
Medical - PN: Subj Patient information: Note initiated : 08/31/17 at 11:45 am Service Date, if different from initiated Date: [] Patient: Jd Morris a 57 y/o M admitted on 08/29/17 for Weakness/Hyperkalemia, Sepsis. Chief Complaint: [] Interval history: August 29, 2017: History of present illness: Mr. Morris is a 57 year old M with a history of ESRD on HD, peripheral vascular disease with labile blood pressures, epilepsy not on antiepileptics and TIA who was in his usual state of health until developing a productive cough, generalized weakness and chills. He was too weak to get dialysis today. He was brought in with a fever of 101.4 and found to have a potassium of 6.9, lactate of 4.3. His systolic blood pressure was as low as 50 in the ED and he was started on levophed after receiving 2 L of IV fluids in the ED. He was treated with vancomycin and ceftriaxone in the received a dose of Zosyn prior to transfer to ICU. He endorses rhinorrhea, sneezing and sore throat. His ride to HD this week had similar symptoms. Anesthesia was called for central line placement and are line placement. Patient declined central line placement as he was concerned about getting an infection. We discussed the risks and benefits of having adequate vascular access, especially aas the patient requests full code status. The patient ultimately consented to arterial line placement for blood pressure monitoring and, after discussion with Dr. Tony, his HD catheter will be used for pressor administration. He has had labile blood pressures with systolics ranging from 50 to 200s. Per discussion with Dr. Tony, the patient likely has some underlying peripheral vascular disease and stenoses causing erroneous readings, but it sounds like the anatomic reason has not been fully delineated as of yet. He is dizzy and weak now and his current blood pressure is likely a true reading. He did not receive a flu shot this year. He states influenza vaccination causes vomiting and diarrhea and him. He received Pneumovax in 2009. He requests not to receive vancomycin and to receive gentamicin instead. We discussed the risks of irreversible ototoxicity in the setting of renal impairment. He states that he was treated with vancomycin for PD-associated peritonitis which actually turned out to be a fungal action and vancomycin did not think to help him. He is willing to take linezolid. Dr. Tony reports that the patient, with history of peritonitis, has had a sterile fluid collection over his liver. The patient denies any abdominal symptoms whatsoever. August 30: Had dialysis last night with resolution of his hyperkalemia and lactic acidosis. He is feeling much better today, requiring Levophed 20 g currently. He had some bradycardia to the 20-40s overnight, but actually had an increase of blood pressure with that. He has refusing his DVT prophylaxis with heparin. He required oxygen overnight, but is currently on room air. ROS: no cp or fever August 31: -Last night the patient began to complain of sinus pain and pressure. He wanted to take Sudafed, but that apparently interacts with Zyvox. He was given guaifenesin. He thinks the pressure may be a little bit improved today. He reports pressure both above and below both eyes. He has been feeling cold, but denies overt fever or chills. He denies nasal discharge or postnasal drip. He has had a cough productive of clear phlegm. -Otherwise, he denies earaches or toothaches, swollen glands, sore throat, chest pain or palpitations, shortness of breath, GI or symptoms. -He is annoyed that we want him to stay in the hospital. He believes that his low blood pressure is normal for him. -Dr. Tony would like to dialyze him again today to address his electrolytes, but would like to keep him on Levophed for blood pressure support until after dialysis. - Constitutional Vitals: Vital Signs Temp Pulse Resp BP Pulse Ox 98.5 F 58 L 17 83/43 93 08/31/17 01:03 08/31/17 06:04 08/31/17 07:01 08/31/17 07:01 08/31/17 07:01 Period Temp Pulse Resp BP Sys/Cruz Pulse Ox Last 24 Hr 98.5 F-101.0 F 43-62 9-23 76-112/28-64 93-100 Intake and Output 08/30/17 08/31/17 08/31/17 21:59 05:59 13:59 Intake Total 1200 / 1200 114 / 114 70 / 70 Balance 1200 / 1200 114 / 114 70 / 70 Weight 189 lb 12.8 oz Intake & Output: Intake & Output 08/30/17 08/31/17 08/31/17 21:59 05:59 13:59 Intake Total 1200 / 1200 114 / 114 70 / 70 Balance 1200 / 1200 114 / 114 70 / 70 Weight 189 lb 12.8 oz Intake: IV 114 / 114 70 / 70 Levophed 16 mg In Dextrose 5% 64 / 64 20 / 20 in Water 234 ml @ 10 MCG/MIN 9. 37 mls/hr IV Q24H [facility] Rx#: [id number] Zosyn 2.25 gm In Dextrose 5% in 50 / 50 50 / 50 Water 50 ml @ 100 mls/hr IV Q12H [facility] Rx#:[id number] Oral 1200 / 1200 On exam, he is lying in bed, with a quilt over his head. He seems somewhat irritable. Head is normocephalic atraumatic. He does seem to have tenderness over both frontal and maxillary areas. No discharge is noted. Neck is supple without obvious lymphadenopathy. Cardiac exam shows regular rate and rhythm. Lungs show somewhat decreased breath sounds at the bases, but otherwise clear, without rales, rhonchi, wheezes. Abdomen is soft and nontender. Extremities: Show trace edema at the ankles. Neurologic exam is grossly nonfocal. Medical - PN: Obj Da - Labs CBC & Chem 7: 08/31/17 03:42 08/31/17 03:42 Labs: Abnormal Lab Results 08/31/17 08/31/17 08/30/17 03:42 03:42 03:42 WBC RBC 3.50 L Hgb 12.4 L Hct 36.5 L MCV 104.4 H MCH 35.4 H RDW 16.6 H Seg Neutrophils % 82 H Lymphocytes % 7 L Monocytes % (Manual) Metamyelocytes % 1 H Reactive Lymphocytes RBC Morphology Abnorm A Anisocytosis 1+ A Macrocytosis 1+ A VBG Lactic Acid Potassium 6.2 H* Chloride 93 L Carbon Dioxide 20 L Anion Gap 20.0 H 18.0 H BUN 31 H Creatinine 6.9 H* 4.9 H Calcium 7.7 L 7.9 L NT-Pro-B Natriuret Pep Total Protein 5.8 L Albumin 2.9 L 08/30/17 08/29/17 08/29/17 03:42 16:26 16:22 WBC 12.5 H RBC 3.63 L Hgb 12.8 L Hct 38.0 L MCV 104.8 H MCH 35.4 H RDW 16.4 H Seg Neutrophils % Lymphocytes % 6 L Monocytes % (Manual) 14 H Metamyelocytes % Reactive Lymphocytes 4 H RBC Morphology Abnorm A Anisocytosis 1+ A Macrocytosis 1+ A VBG Lactic Acid 4.3 H* Potassium Chloride Carbon Dioxide Anion Gap BUN Creatinine Calcium NT-Pro-B Natriuret Pep 601.4 H Total Protein Albumin 08/29/17 08/29/17 16:22 16:22 WBC 12.1 H RBC 3.82 L Hgb Hct 40.2 L MCV 105.2 H MCH 35.8 H RDW 16.9 H Seg Neutrophils % 89 H Lymphocytes % 5 L Monocytes % (Manual) Metamyelocytes % Reactive Lymphocytes RBC Morphology Abnorm A Anisocytosis 1+ A Macrocytosis 2+ A VBG Lactic Acid Potassium 6.9 H* Chloride 92 L Carbon Dioxide 20 L Anion Gap 23.0 H BUN 36 H Creatinine 8.7 H* Calcium 8.1 L NT-Pro-B Natriuret Pep Total Protein Albumin CT of the sinuses: Pending Chest x-ray: Pending August 29: Blood cultures are negative so far. MRSA screen was negative. EKG: Shows normal sinus rhythm at a rate of 61, with nonspecific ST-T changes. Chest x-ray: Showed mild stable cardiomegaly, minor bibasilar atelectasis. Meds: Medications Acetaminophen (Tylenol) 650 mg PO Q4-6HP PRN PRN Reason: PAIN/FEVER > 101 Last Admin: 08/31/17 10:54 Dose: 650 mg Albuterol Sulfate (Ventolin) 2.5 mg NEB Q4HP PRN PRN Reason: Shortness Of Breath Guaifenesin (Mucinex) 600 mg PO BIDP PRN PRN Reason: Congestion Last Admin: 08/31/17 10:55 Dose: 600 mg Heparin Sodium (Porcine) (Heparin) 5,000 unit SQ Q12 [facility] Last Admin: 08/31/17 07:46 Dose: Not Given Heparin Sodium/Sodium Chloride (Heparin/Ns) 500 mls @ 0 mls/hr IV .Q0M [facility]; KVO PRN Reason: Protocol Sodium Chloride (Sodium Chloride 0.9%) 1,000 mls @ 20 mls/hr IV .Q24H [facility] Last Admin: 08/30/17 21:11 Dose: Not Given Piperacillin Sod/Tazobactam (Sod 2.25 gm/ Dextrose) 50 mls @ 100 mls/hr IV Q12H [facility] Last Infusion: 08/31/17 09:30 Dose: Infused Norepinephrine Bitartrate 16 (mg/ Dextrose) 250 mls @ 9.37 mls/hr IV Q24H [facility]; 10 MCG/MIN PRN Reason: Protocol Last Titration: 08/31/17 10:24 Dose: 5 mcg/min, 4.68 mls/hr Linezolid (Zyvox) 600 mg PO Q12 [facility] Last Admin: 08/31/17 10:53 Dose: 600 mg Lorazepam (Ativan) 1 mg IV Q2HP PRN PRN Reason: Seizure Activity Last Admin: 08/30/17 23:32 Dose: 1 mg Ondansetron HCl (Zofran) 4 mg IV Q4-6HP PRN PRN Reason: Nausea And Vomiting Last Admin: 08/31/17 05:25 Dose: 4 mg Senna (Senokot) 1 tab PO HSP PRN PRN Reason: Constipation Sodium Chloride (Saline Flush) 10 ml IV Q8 [facility] Last Admin: 08/31/17 05:05 Dose: 10 ml Medical - PN: A/P - Time Spent With Patient Total time spent is greater than 50% in coordination of care (as documented) at patient's floor/unit and/or counseling patient: 25 - 35 minutes - Narrative A/P Narrative: #1. Infectious disease. Septic shock with lactic acidosis. -Etiologies include respiratory or vascular source. By, history he has a viral pulmonary infection with his sneezing, sore throat and productive cough. CXR negative for pneumonia. HD catheter is due to be replaced 09/09; has been in place since 2009 per patient. -D/W Dr. Tony on admit Attempt to limit fluids. His history of labile BP ( likely 2/2 PVD) confounds picture and will need to go off sx. Goal MAP 60. Pt has a history of sterile fluid collection over liver as well as h/o peritonitis 2/2 PD. No abdominal sx--doubt this is source. -Pt is quite directive in his care and is refusing a central line for fear of line infection. Per Dr. Tony, OK to use HD catheter for pressors. -Sepsis appears to be resolving, but patient continues quite hypotensive. He is known to have very labile blood pressures as an outpatient. He is still requiring levo fed for blood pressure support. -He has been complaining of sinus pain, so did undergo CT of his sinuses today. Results are pending. Continue Mucinex. Continue empiric antibiotics, vancomycin, linezolid, Zosyn. -Cultures negative so far.. #2. Bradycardia, asymptomatic--mostly nocturnal so far. Not on AV brody blocking agents. Monitor. May benefit from sleep study as OP. #3. Renal. Hyperkalemia, and end-stage renal disease. Managed by Dr. Tony, dialysis. The patient is frustrated that more fluid is not being pulled off, but I explained to him that we cannot allow his blood pressure to drop any lower. -Dialysis Thursday, , Thursday. #4. Epilepsy--h/o GTC, petit mal and what sounds like partial seizures per pt. Not on AEDs; still driving. -PRN Ativan ordered. Monitor. ##5. DVT prophylaxis--SC heparin #6. CODE STATUS: Full code with the exception that he does not want to be intubated with an endotracheal tube, only an LMA. He designates his [facility] case technician, Shyla Spencer, as his surrogate MDM ([phone]). Approximately 30 minutes was spent today, reviewing the patient's chart and test results, interviewing and examining him, reviewing plan of care with nursing staff as well as with Dr. Tony. Medical - PN: Qual - VTE Deep Vein Thrombosis/Pulmonary Embolism Present on Admission: Yes Procedures - Arterial Line Size (Gauge): 20
--- NOTE | 2017-08-31 17:09 | XRay Report ---
CLINICAL INFORMATION: Sepsis COMPARISON: 08/29/2017 FINDINGS: The double lumen catheter tip overlies the right atrium. The heart is mildly enlarged but unchanged. Mediastinum shows slight widening which is unchanged. Pulmonary vessels are normal. There is minor bibasilar atelectasis. No effusions IMPRESSION: Minor bibasilar atelectasis. Interpreted and Authenticated by: Amilcar Mcdonald 08/31/17
[2017-08-31] MEDS: LORazepam 2 MG/ML VIAL IV PRN (21:21)
[2017-09-01 06:07] LABS: Mean Cell Volume 104.5 fL (80.0-100.0); Mean Corpuscular Hemoglobin 35.6 pg (26.0-34.0); Platelet Count 182 K/mcL (140-440); RBC 3.48 M/mcL (4.50-5.90); Red Cell Distribution Width 16.7 % (11.5-14.5)
[2017-09-01] MEDS: LORazepam 2 MG/ML VIAL IV PRN (06:33)
[2017-09-01] MEDS: ACETAMINOPHEN 325 MG TABLET PO PRN (06:33)
[2017-09-01] MEDS: NOREPINEPHRINE BITARTRATE 16 MG in DEXTROSE 5% IN WATER 234 ML IV SCH ×2 (06:34→11:24)
[2017-09-01] MEDS: 0.9 % SODIUM CHLORIDE 1,000 ML IV SCH ×3 (06:34→20:48)
[2017-09-01] MEDS: guaiFENesin 600 MG TAB.SR.12H PO PRN (06:34)
[2017-09-01] MEDS: 0.9 % SODIUM CHLORIDE 10 ML SYRINGE IV SCH ×2 (06:35→14:51)
[2017-09-01 06:48] LABS: ALT/SGPT 7 U/l (0-40); Albumin 3.1 gm/dL (3.2-5.2); Albumin/Globulin Ratio 1.1 (1.0-2.3); Alkaline Phosphatase 78 U/L (39-117); Blood Urea Nitrogen 26 mg/dl (6-20)
[2017-09-01 07:00] LABS: Anisocytosis 1+ (NONE SEEN); Band Neutrophils % 1 % (0-10); Eosinophils % (Manual) 6 % (0-7); Lymphocytes % 21 % (15-49); Macrocytosis 1+ (NONE SEEN); Monocytes % (Manual) 7 % (1-12); Platelet Estimate NORMAL (NORMAL); RBC Morphology ABNORM (NORMAL); Segmented Neutrophils % 65 % (38-78)
[2017-09-01] MEDS: HEPARIN 5,000 UNIT/ML VIAL SQ SCH (07:39)
--- NOTE | 2017-09-01 08:07 | Cat Scan Report ---
CLINICAL INFORMATION: Sinus pain COMPARISON: None. TECHNIQUE: 2.5 mm helical slices were obtained from the inferior maxillary sinuses through the frontal sinuses. Axial and coronal reformatted images were processed and reviewed at bone and soft tissue windows.The exam was performed using radiation dose optimization techniques including, but not limited to, automated exposure control, adjustment of the mA and/or kV according to patient size and use of iterative reconstruction technique. FINDINGS: Right frontal sinus is nondeveloped. There is moderate mucosal thickening in the left frontal, all ethmoid sphenoid and bilateral maxillary sinuses. In addition, small air-fluid levels are noted within the sphenoid sinuses. There is narrowing of the infundibulum both anterior ostiomeatal complexes from ethmoid bullae which may impede bilateral maxillary sinus drainage. The frontal recesses and sphenoethmoidal recesses are grossly normal. Nasal region is normal. The orbits, TMJs and petrous temporal regions are all unremarkable. IMPRESSION: Moderate mucosal thickening in the left frontal and all ethmoid sphenoid and maxillary air cells with small air-fluid levels in the sphenoid sinuses all compatible with sinusitis Infundibular narrowing - both anterior ostiomeatal complexes which may impede maxillary sinus drainage 6 mm radiolucent focus about the root of the right first maxillary incisor. This may represent an odontogenic abscess Interpreted and Authenticated by: Amilcar Mcdonald 09/01/17
--- NOTE | 2017-09-01 08:49 | Nephrology Progress Note ---
Subjective Patient information: Note initiated : 09/01/17 at 8:47 am Service Date, if different from initiated Date: [] Patient: Jd Morris 57 y/o M admitted on 08/29/17 for Weakness/Hyperkalemia, Sepsis. Chief Complaint: [Still hypotensive. Feels ok otherwise.] Objective - Vital Signs Vital signs: Vital Signs Temp Pulse Pulse Resp BP Pulse Ox 09/01/17 08:01 124/62 95 09/01/17 08:00 98.0 F 97 09/01/17 07:30 96 09/01/17 07:02 96 09/01/17 07:01 98.0 F 14 122/61 96 09/01/17 06:59 45 L 16 97 09/01/17 06:30 41 L 12 96 09/01/17 06:02 40 L 16 118/63 100 09/01/17 06:00 38 L 13 96 09/01/17 05:30 39 L 18 97 09/01/17 05:02 43 L 15 82/70 93 09/01/17 05:00 43 L 17 95 09/01/17 04:30 45 L 13 94 09/01/17 04:03 44 L 13 96 09/01/17 04:02 98.9 F 43 L 9 L 104/47 95 09/01/17 04:00 42 L 10 L 96 09/01/17 03:30 42 L 18 95 09/01/17 03:01 42 L 14 98 09/01/17 03:00 47 L 11 L 105/92 97 09/01/17 02:30 44 L 13 95 09/01/17 02:01 45 L 13 110/46 96 09/01/17 02:00 47 L 14 96 09/01/17 01:30 48 L 9 L 99 09/01/17 01:01 49 L 20 99/37 99 09/01/17 01:00 47 L 18 98 09/01/17 00:37 46 L 95 09/01/17 00:30 49 L 21 98 09/01/17 00:01 47 L 13 99 09/01/17 00:00 98.7 F 46 L 15 107/85 98 08/31/17 23:30 45 L 11 L 94 08/31/17 23:05 46 L 13 103/71 96 12/18/17 23:00 48 L 21 95 17 22:30 25 L 19 92 1817 22:01 54 L 22 93/55 95 1817 22:00 51 L 17 97 1817 21:43 53 L 12 117/78 97 18/17 21:30 57 L 17 97 17 21:00 58 L 14 96 18/17 20:30 67 16 95 1817 20:00 99.2 F H 68 14 96 1817 19:44 63 97 18/17 19:30 56 L 96 17 19:00 71 97 18/17 18:30 71 95 18/17 17:30 98.1 F 16 96 17 17:24 77 103/57 18/17 17:11 69 83/51 18/17 17:06 77 106/63 18/17 17:00 17 100 1817 16:58 78 84/47 1817 16:47 76 112/58 18/17 16:32 79 107/61 18/17 16:30 13 100 18/17 16:19 65 85/52 18/17 16:00 98.0 F 16 97 17 15:55 59 L 79/50 18/17 15:51 61 85/52 18/17 15:30 73 19 96/60 98 18/17 15:16 65 86/53 18/17 15:00 97.9 F 14 99 17 14:54 64 86/53 18/17 14:44 70 95/57 18/17 14:30 46 L 20 98 18/17 14:24 51 L 90/35 18/17 14:00 45 L 54 L 16 97 18/17 13:30 16 98 18/17 13:00 98.1 F 15 97 18/17 12:30 16 96 18/17 12:00 15 96 18/17 11:30 16 96 18/17 11:00 14 97 18/17 10:30 14 96 18/17 10:00 15 94 18/17 09:46 18 100 12/18/17 09:01 19 97 08/31/17 09:00 17 82/31 98 Intake and Output 08/31/17 09/01/17 09/01/17 21:59 05:59 13:59 Intake Total 333 / 333 230 / 230 589 / 589 Output Total 3600 / 3600 Balance -3267 / -3267 230 / 230 589 / 589 Intake: IV 33 / 33 589 / 589 Sodium Chloride 0.9% 1,000 ml @ 589 / 589 20 mls/hr IV .Q24H [facility] Rx#: [id number] Levophed 16 mg In Dextrose 5% 28 / 28 in Water 234 ml @ 10 MCG/MIN 9. 37 mls/hr IV Q24H [facility] Rx#: [id number] Zosyn 2.25 gm In Dextrose 5% in 5 / 5 Water 50 ml @ 100 mls/hr IV Q12H [facility] Rx#:[id number] Oral 300 / 300 230 / 230 Output: Hemodialysis UF 3600 / 3600 Other: Meal Dinner Percent of Meal Consumed 50% # Bowel Movements 1 Weight 197 lb Intake & Output: Intake & Output 08/31/17 09/01/17 09/01/17 21:59 05:59 13:59 Intake Total 333 / 333 230 / 230 589 / 589 Output Total 3600 / 3600 Balance -3267 / -3267 230 / 230 589 / 589 Weight 197 lb Intake: IV 589 / 589 Sodium Chloride 0.9% 1,000 ml @ 589 / 589 20 mls/hr IV .Q24H [facility] Rx#: [id number] Levophed 16 mg In Dextrose 5% 28 / 28 in Water 234 ml @ 10 MCG/MIN 9. 37 mls/hr IV Q24H [facility] Rx#: [id number] Zosyn 2.25 gm In Dextrose 5% in 5 / 5 Water 50 ml @ 100 mls/hr IV Q12H [facility] Rx#:[id number] Oral 300 / 300 230 / 230 Output: Hemodialysis UF 3600 / 3600 Other: Meal Dinner Percent of Meal Consumed 50% # Bowel Movements 1 - General Appearance General appearance: well-developed EENT: ATNC Neck: no JVD Respiratory: no kyphosis Cardiology: no murmurs Gastrointestinal: normoactive bowel sounds Integumentary: no rash Neurologic: no focal deficit Musculoskeletal: no deformities Psychiatric: mood/affect appropriate - Lab 09/01/17 03:46 09/01/17 03:46 Most recent lab results Calcium 8.2 mg/dl (8.6-10.4) L 09/01/17 03:46 Assessment and Plan (1) ESRD (end stage renal disease) on dialysis Status: Acute Comment: Hyperkalemia. Will have dialysis tonight with a 2 K bath. Will not take any more fluids. Sepsis. Source not yet identified. BP is still low. Will try midodrine.
[2017-09-01] MEDS ORDERED: MIDODRINE 5 MG TABLET PO ONE (08:51)
--- NOTE | 2017-09-01 10:20 | Internal Med Progress Note ---
Medical - PN: Subj Patient information: Note initiated : 09/01/17 at 10:20 am Service Date, if different from initiated Date: [] Patient: Jd Morris 57 y/o M admitted on 08/29/17 for Weakness/Hyperkalemia, Sepsis. Chief Complaint: [] - Constitutional Vitals: Vital Signs Temp Pulse Resp BP Pulse Ox 98.0 F 45 L 14 124/62 95 09/01/17 08:00 09/01/17 06:59 09/01/17 07:01 09/01/17 08:01 09/01/17 08:01 Period Temp Pulse Resp BP Sys/Cruz Pulse Ox Last 24 Hr 97.9 F-99.2 F 25-79 9-22 79-124/35-92 92-100 Intake and Output 08/31/17 09/01/17 09/01/17 21:59 05:59 13:59 Intake Total 333 / 333 230 / 230 589 / 589 Output Total 3600 / 3600 Balance -3267 / -3267 230 / 230 589 / 589 Weight 197 lb Intake & Output: Intake & Output 08/31/17 09/01/17 09/01/17 21:59 05:59 13:59 Intake Total 333 / 333 230 / 230 589 / 589 Output Total 3600 / 3600 Balance -3267 / -3267 230 / 230 589 / 589 Weight 197 lb Intake: IV 33 / 33 589 / 589 Sodium Chloride 0.9% 1,000 ml @ 589 / 589 20 mls/hr IV .Q24H [facility] Rx#: [id number] Levophed 16 mg In Dextrose 5% 28 / 28 in Water 234 ml @ 10 MCG/MIN 9. 37 mls/hr IV Q24H [facility] Rx#: [id number] Zosyn 2.25 gm In Dextrose 5% in 5 / 5 Water 50 ml @ 100 mls/hr IV Q12H [facility] Rx#:[id number] Oral 300 / 300 230 / 230 Output: Hemodialysis UF 3600 / 3600 Other: Meal Dinner Percent of Meal Consumed 50% # Bowel Movements 1 Medical - PN: Obj Da - Labs CBC & Chem 7: 09/01/17 03:46 09/01/17 03:46 Labs: Abnormal Lab Results 09/01/17 09/01/17 08/31/17 03:46 03:46 03:42 WBC RBC 3.48 L Hgb 12.4 L Hct 36.4 L MCV 104.5 H MCH 35.6 H RDW 16.7 H Seg Neutrophils % Lymphocytes % Monocytes % (Manual) Metamyelocytes % Reactive Lymphocytes RBC Morphology Abnorm A Anisocytosis 1+ A Macrocytosis 1+ A VBG Lactic Acid Potassium 6.2 H* Chloride 93 L 93 L Carbon Dioxide 20 L Anion Gap 20.0 H 20.0 H BUN 26 H 31 H Creatinine 6.3 H* 6.9 H* Calcium 8.2 L 7.7 L NT-Pro-B Natriuret Pep Total Protein 5.8 L Albumin 3.1 L 2.9 L 08/31/17 08/30/17 08/30/17 03:42 03:42 03:42 WBC 12.5 H RBC 3.50 L 3.63 L Hgb 12.4 L 12.8 L Hct 36.5 L 38.0 L MCV 104.4 H 104.8 H MCH 35.4 H 35.4 H RDW 16.6 H 16.4 H Seg Neutrophils % 82 H Lymphocytes % 7 L 6 L Monocytes % (Manual) 14 H Metamyelocytes % 1 H Reactive Lymphocytes 4 H RBC Morphology Abnorm A Abnorm A Anisocytosis 1+ A 1+ A Macrocytosis 1+ A 1+ A VBG Lactic Acid Potassium Chloride Carbon Dioxide Anion Gap 18.0 H BUN Creatinine 4.9 H Calcium 7.9 L NT-Pro-B Natriuret Pep Total Protein Albumin 08/29/17 08/29/17 08/29/17 16:26 16:22 16:22 WBC RBC Hgb Hct MCV MCH RDW Seg Neutrophils % Lymphocytes % Monocytes % (Manual) Metamyelocytes % Reactive Lymphocytes RBC Morphology Anisocytosis Macrocytosis VBG Lactic Acid 4.3 H* Potassium 6.9 H* Chloride 92 L Carbon Dioxide 20 L Anion Gap 23.0 H BUN 36 H Creatinine 8.7 H* Calcium 8.1 L NT-Pro-B Natriuret Pep 601.4 H Total Protein Albumin 08/29/17 16:22 WBC 12.1 H RBC 3.82 L Hgb Hct 40.2 L MCV 105.2 H MCH 35.8 H RDW 16.9 H Seg Neutrophils % 89 H Lymphocytes % 5 L Monocytes % (Manual) Metamyelocytes % Reactive Lymphocytes RBC Morphology Abnorm A Anisocytosis 1+ A Macrocytosis 2+ A VBG Lactic Acid Potassium Chloride Carbon Dioxide Anion Gap BUN Creatinine Calcium NT-Pro-B Natriuret Pep Total Protein Albumin Meds: Medications Acetaminophen (Tylenol) 650 mg PO Q4-6HP PRN PRN Reason: PAIN/FEVER > 101 Last Admin: 09/01/17 06:33 Dose: 650 mg Albuterol Sulfate (Ventolin) 2.5 mg NEB Q4HP PRN PRN Reason: Shortness Of Breath Guaifenesin (Mucinex) 600 mg PO BIDP PRN PRN Reason: Congestion Last Admin: 09/01/17 06:34 Dose: 600 mg Heparin Sodium (Porcine) (Heparin) 5,000 unit SQ Q12 [facility] Last Admin: 09/01/17 07:39 Dose: Not Given Heparin Sodium/Sodium Chloride (Heparin/Ns) 500 mls @ 0 mls/hr IV .Q0M [facility]; KVO PRN Reason: Protocol Sodium Chloride (Sodium Chloride 0.9%) 1,000 mls @ 20 mls/hr IV .Q24H [facility] Last Admin: 09/01/17 07:41 Dose: 10 mls/hr Piperacillin Sod/Tazobactam (Sod 2.25 gm/ Dextrose) 50 mls @ 100 mls/hr IV Q12H [facility] Last Infusion: 08/31/17 21:25 Dose: 0 mls/hr Norepinephrine Bitartrate 16 (mg/ Dextrose) 250 mls @ 9.37 mls/hr IV Q24H [facility]; 10 MCG/MIN PRN Reason: Protocol Last Admin: 09/01/17 06:34 Dose: Not Given Linezolid (Zyvox) 600 mg PO Q12 [facility] Last Admin: 08/31/17 21:19 Dose: 600 mg Lorazepam (Ativan) 1 mg IV Q2HP PRN PRN Reason: Seizure Activity Last Admin: 09/01/17 06:33 Dose: 1 mg Midodrine (Midodrine Hcl) 10 mg PO TID@0800,1200,1700 [facility] Ondansetron HCl (Zofran) 4 mg IV Q4-6HP PRN PRN Reason: Nausea And Vomiting Last Admin: 08/31/17 05:25 Dose: 4 mg Senna (Senokot) 1 tab PO HSP PRN PRN Reason: Constipation Last Admin: 08/31/17 21:45 Dose: 1 tab Sodium Chloride (Saline Flush) 10 ml IV Q8 [facility] Last Admin: 09/01/17 06:35 Dose: 10 ml Medical - PN: A/P - Time Spent With Patient Total time spent is greater than 50% in coordination of care (as documented) at patient's floor/unit and/or counseling patient: Medical - PN: Qual - VTE Deep Vein Thrombosis/Pulmonary Embolism Present on Admission: Yes Procedures - Arterial Line Size (Gauge): 20
[2017-09-01] MEDS: LINEZOLID 600 MG TABLET PO SCH (11:12)
[2017-09-01] MEDS: PIPERACILLIN SODIUM/TAZOBACTAM 2.25 GM in DEXTROSE 5% IN WATER 50 ML IV SCH (11:16)
[2017-09-01] MEDS: MIDODRINE 5 MG TABLET PO SCH ×2 (11:23→16:24)
[2017-09-01] MEDS ORDERED: HYDROcodone/APAP 10/325MG TABLET PO PRN (15:20)
--- NOTE | 2017-09-01 15:22 | Discharge Summary ---
Medical - DS: Prov Patient information: Note initiated : 09/01/17 at 3:20 pm Service Date, if different from initiated Date: [] Patient: Jd Morris 57 y/o M admitted on 08/29/17 for Weakness/Hyperkalemia, Sepsis. Chief Complaint: [] Date of admission: 08/29/17 20:10 Discharge date: 09/01/17 Primary care physician: Alexei Langley Admitting clinician: Sonali Ortiz Consults: 08/29/17 18:32 Consult to Physician [CONS] Stat Comment: Consulting Provider: Sonali Ortiz Reason For Exam: Physician to Consult Dr. Tony, nephrology Attending physician on discharge: Betzy Callahan Medical - DS: Meds - Discharge Medications Prescriptions: Amoxicillin/Potassium Clav [Augmentin] 875 mg PO Q12H #14 tab Fluticasone Propionate [Flonase] 1 spray NS BID #1 spray.danie guaiFENesin [Mucinex] 600 mg PO BIDP PRN #60 tab.sr.12h PRN Reason: Congestion Active and Home Medications: Discharge medications: Augmentin 875 mg p.o. twice daily for 7 more days, for sinusitis Flonase 1-2 sprays each nostril twice daily for sinusitis Mucinex/guaifenesin 600 mg p.o. twice daily for sinusitis Tylenol 650 mg every 6 hours as needed mild pain or fever Clonazepam 1 mg nightly Hydrocodone/acetaminophen 10/325 1-2 tabs every 8 hours as needed Gabapentin 400 mg nightly Sensipar 600 mg nightly Sevelamer 400 mg daily +4000 mg nightly, as before ? Midodrine-patient refuses to take this, saying it makes him dizzy. I would discontinue the Celebrex, as this is a high risk medication for both kidney function and blood pressure. Previous home Medications: Celebrex 100 mg PO DAILY 08/29/17 [History Confirmed 08/29/17 Last Taken Unknown ] Gabapentin 400 mg PO HS 08/29/17 [History Confirmed 08/29/17 Last Taken Unknown] HYDROcodone/ACETAMINOPHEN [[place] 10-325 Tablet] 2 each PO Q8HP PRN 08/29/17 [ History Confirmed 08/29/17 Last Taken Unknown] Sensipar 600 mg PO HS 08/29/17 [History Confirmed 08/29/17 Last Taken Unknown] Sevelamer HCl [Renagel] 4,000 mg PO HS 08/29/17 [History Confirmed 08/29/17 Last Taken Unknown] Sevelamer HCl [Renagel] 400 mg PO DAILY 08/29/17 [History Confirmed 08/29/17 Last Taken Unknown] Tums 1,000 mg PO HS 08/29/17 [History Confirmed 08/29/17 Last Taken Unknown] clonazePAM [Clonazepam] 1 mg PO HS 08/29/17 [History Confirmed 08/29/17 Last Taken Unknown] Medical - DS: Hosp Hospital course: Mr. Morris is a 57 year old M August 29, 2017: History of present illness: Mr. Morris is a 57 year old M with a history of ESRD on HD, peripheral vascular disease with labile blood pressures, epilepsy not on antiepileptics and TIA who was in his usual state of health until developing a productive cough, generalized weakness and chills. He was too weak to get dialysis today. He was brought in with a fever of 101.4 and found to have a potassium of 6.9, lactate of 4.3. His systolic blood pressure was as low as 50 in the ED and he was started on levophed after receiving 2 L of IV fluids in the ED. He was treated with vancomycin and ceftriaxone in the received a dose of Zosyn prior to transfer to ICU. He endorses rhinorrhea, sneezing and sore throat. His ride to HD this week had similar symptoms. Anesthesia was called for central line placement and are line placement. Patient declined central line placement as he was concerned about getting an infection. We discussed the risks and benefits of having adequate vascular access, especially aas the patient requests full code status. The patient ultimately consented to arterial line placement for blood pressure monitoring and, after discussion with Dr. Tony, his HD catheter will be used for pressor administration. He has had labile blood pressures with systolics ranging from 50 to 200s. Per discussion with Dr. Tony, the patient likely has some underlying peripheral vascular disease and stenoses causing erroneous readings, but it sounds like the anatomic reason has not been fully delineated as of yet. He is dizzy and weak now and his current blood pressure is likely a true reading. He did not receive a flu shot this year. He states influenza vaccination causes vomiting and diarrhea and him. He received Pneumovax in 2009. He requests not to receive vancomycin and to receive gentamicin instead. We discussed the risks of irreversible ototoxicity in the setting of renal impairment. He states that he was treated with vancomycin for PD-associated peritonitis which actually turned out to be a fungal action and vancomycin did not think to help him. He is willing to take linezolid. Dr. Tony reports that the patient, with history of peritonitis, has had a sterile fluid collection over his liver. The patient denies any abdominal symptoms whatsoever. August 30: Had dialysis last night with resolution of his hyperkalemia and lactic acidosis. He is feeling much better today, requiring Levophed 20 g currently. He had some bradycardia to the 20-40s overnight, but actually had an increase of blood pressure with that. He has refusing his DVT prophylaxis with heparin. He required oxygen overnight, but is currently on room air. ROS: no cp or fever August 31: -Last night the patient began to complain of sinus pain and pressure. He wanted to take Sudafed, but that apparently interacts with Zyvox. He was given guaifenesin. He thinks the pressure may be a little bit improved today. He reports pressure both above and below both eyes. He has been feeling cold, but denies overt fever or chills. He denies nasal discharge or postnasal drip. He has had a cough productive of clear phlegm. -Otherwise, he denies earaches or toothaches, swollen glands, sore throat, chest pain or palpitations, shortness of breath, GI or symptoms. -He is annoyed that we want him to stay in the hospital. He believes that his low blood pressure is normal for him. -Dr. Tony would like to dialyze him again today to address his electrolytes, but would like to keep him on Levophed for blood pressure support until after dialysis. September 01: -This patient was admitted with apparent sepsis, and respiratory symptoms, fever , severe hypotension. He was treated with aggressive IV fluids and levo fed for blood pressure support. He was started on empiric vancomycin, ceftriaxone, Zosyn. No source of infection was initially found, but eventually he began to complain of sinus pressure, so CT of the sinuses was done, and did reveal pansinusitis. Currently, leukocytosis has resolved. However, we have continue to have trouble maintaining blood pressures. This is complicated by his need for dialysis and then removing fluid for dialysis. -He has continued to need levo fed for blood pressure support, with maps dropping down below 50 without it. He is quite adamant that his blood pressures are always a slow and that he feels fine with blood pressures as low. Dr. Tony recommended a trial of midodrine today, to get him off of the levo fed, but the patient is quite resistant to that idea, only agreeing to one trial dose. He thinks he had an adverse reaction to midodrine in the past with hypotension. -The patient is also been quite significantly bradycardic throughout his stay, with heart rates dropping into the 30s and 40s frequently. His bradycardia may be contributing to his hypotension. Dr. Tony discussed with him cardiology referral and possible need for a pacemaker, but the patient says he is already refused this in the past. -Today, the patient says he is feeling somewhat better. He is having a little bit less pressure in his sinuses, although does not actually seem to be draining. He seems more willing to try Flonase today. Otherwise, he denies fever or chills, chest pain or shortness of breath, GI or symptoms. -Patient states he will be leaving the hospital this evening after dialysis, whether we advise it or not. He is willing to sign an AMA form in order to leave. On exam, he is lying in bed, He seems somewhat irritable. He is annoyed that he did not get his home medications reordered once the doses are clarified. Unfortunately even though he knew he was not receiving the medications, he did not tell us until this morning. Head is normocephalic atraumatic. He does seem to have improved tenderness over both frontal and maxillary areas. No discharge is noted. Neck is supple without obvious lymphadenopathy. Cardiac exam shows regular rate and rhythm. Lungs show somewhat decreased breath sounds at the bases, but otherwise clear, without rales, rhonchi, wheezes. Abdomen is soft and nontender. Extremities: Show trace edema at the ankles. Neurologic exam is grossly nonfocal. A/P Narrative: #1. Infectious disease. Septic shock with lactic acidosis. -Etiologies include respiratory or vascular source. By, history he has a viral pulmonary infection with his sneezing, sore throat and productive cough. CXR negative for pneumonia. HD catheter is due to be replaced 09/09; has been in place since 2009 per patient. -D/W Dr. Tony on admit Attempt to limit fluids. His history of labile BP ( likely 2/2 PVD) confounds picture and will need to go off sx. Goal MAP 60. Pt has a history of sterile fluid collection over liver as well as h/o peritonitis 2/2 PD. No abdominal sx--doubt this is source. -Pt is quite directive in his care and is refusing a central line for fear of line infection. Per Dr. Tony, OK to use HD catheter for pressors. -Sepsis appears to be resolving, but patient continues quite hypotensive. He is known to have very labile blood pressures as an outpatient. He is still requiring levophed for blood pressure support. -We will need to wean this prior to him discharging. He is due for dialysis this evening, so we will see where we are after dialysis. He has agreed to only 1 dose of midodrine as a trial. -His apparent sinus infection may be the source of possible sepsis. When he leaves the hospital we will put him on oral Augmentin for another 7 days, in addition to Flonase and Mucinex. -CT scan also shows the possibility of a dental abscess. He should probably follow-up with a dentist to look into this further. Augmentin should help to cover this infection as well. DC IV antibiotics. -Cultures negative so far.. #2. Bradycardia, asymptomatic--mostly nocturnal so far. Not on AV brody blocking agents. Monitor. May benefit from sleep study as OP. -The patient is advised that this may be contributing to his hypotension, and he should have cardiology evaluation to evaluate the need for a pacemaker. He is resistant to this idea. #3. Renal. Hyperkalemia, and end-stage renal disease. Managed by Dr. Tony, dialysis. The patient is frustrated that more fluid is not being pulled off, but I explained to him that we cannot allow his blood pressure to drop any lower. -Dialysis Thursday, , Thursday. -Blood pressure after dialysis today was in the 80s systolic. The patient chose to leave AMA, and refused to take midodrine. Nurses note he was able to dress himself and transfer from bed to the wheelchair and from the chair into a transportation vehicle. #4. Epilepsy--h/o GTC, petit mal and what sounds like partial seizures per pt. Not on AEDs; still driving. -PRN Ativan ordered. Monitor. ##5. DVT prophylaxis--SC heparin #6. CODE STATUS: Full code with the exception that he does not want to be intubated with an endotracheal tube, only an LMA. He designates his [place] disease case manager, Shyla Spencer, as his surrogate MDM ([phone]). Discharge diagnosis: Sepsis. Pansinusitis. Hypotension. End-stage renal disease. - Time Spent with Patient Total time spent providing and/or coordinating discharge services: Greater than 30 minutes Medical - DS: Exam - Constitutional Vitals: Vital Signs Temp Pulse Pulse Resp BP Pulse Ox 09/01/17 14:00 42 L 15 97 09/01/17 13:30 13 98 09/01/17 13:01 15 112/43 97 09/01/17 13:00 13 99 09/01/17 12:30 17 96 09/01/17 12:01 13 103/56 97 09/01/17 12:00 98.0 F 14 97 09/01/17 11:30 14 97 09/01/17 11:02 14 97 09/01/17 11:01 98.1 F 12 91/43 97 09/01/17 11:00 14 97 09/01/17 10:30 58 L 14 97 09/01/17 10:01 50 L 15 104/35 95 09/01/17 10:00 48 L 8 L 95 09/01/17 09:30 16 97 09/01/17 09:01 14 97/72 97 09/01/17 09:00 12 96 09/01/17 08:30 16 97 09/01/17 08:02 18 92 09/01/17 08:01 124/62 95 09/01/17 08:00 98.0 F 97 09/01/17 07:30 96 09/01/17 07:02 96 09/01/17 07:01 98.0 F 14 122/61 96 09/01/17 06:59 45 L 16 97 09/01/17 06:30 41 L 12 96 09/01/17 06:02 40 L 16 118/63 100 09/01/17 06:00 38 L 13 96 09/01/17 05:30 39 L 18 97 09/01/17 05:02 43 L 15 82/70 93 09/01/17 05:00 43 L 17 95 09/01/17 04:30 45 L 13 94 09/01/17 04:03 44 L 13 96 09/01/17 04:02 98.9 F 43 L 9 L 104/47 95 09/01/17 04:00 42 L 10 L 96 09/01/17 03:30 42 L 18 95 09/01/17 03:01 42 L 14 98 09/01/17 03:00 47 L 11 L 105/92 97 09/01/17 02:30 44 L 13 95 09/01/17 02:01 45 L 13 110/46 96 09/01/17 02:00 47 L 14 96 09/01/17 01:30 48 L 9 L 99 09/01/17 01:01 49 L 20 99/37 99 09/01/17 01:00 47 L 18 98 09/01/17 00:37 46 L 95 09/01/17 00:30 49 L 21 98 09/01/17 00:01 47 L 13 99 09/01/17 00:00 98.7 F 46 L 15 107/85 98 08/31/17 23:30 45 L 11 L 94 08/31/17 23:05 46 L 13 103/71 96 08/31/17 23:00 48 L 21 95 08/31/17 22:30 25 L 19 92 08/31/17 22:01 54 L 22 93/55 95 08/31/17 22:00 51 L 17 97 08/31/17 21:43 53 L 12 117/78 97 08/31/17 21:30 57 L 17 97 08/31/17 21:00 58 L 14 96 08/31/17 20:30 67 16 95 17 20:00 99.2 F H 68 14 96 17 19:44 63 97 1817 19:30 56 L 96 08/31/17 19:00 71 97 17 18:30 71 95 08/31/17 17:30 98.1 F 16 96 08/31/17 17:24 77 103/57 17 17:11 69 83/51 17 17:06 77 106/63 08/31/17 17:00 17 100 12/18/17 16:58 78 84/47 08/31/17 16:47 76 112/58 08/31/17 16:32 79 107/61 08/31/17 16:30 13 100 08/31/17 16:19 65 85/52 08/31/17 16:00 98.0 F 16 97 08/31/17 15:55 59 L 79/50 08/31/17 15:51 61 85/52 08/31/17 15:30 73 19 96/60 98 Intake and Output 09/01/17 09/01/17 09/01/17 05:59 13:59 21:59 Intake Total 230 / 230 727 / 727 Balance 230 / 230 727 / 727 Intake: IV 727 / 727 Sodium Chloride 0.9% 1,000 ml @ 589 / 589 20 mls/hr IV .Q24H [facility] Rx#: [id number] Levophed 16 mg In Dextrose 5% 138 / 138 in Water 234 ml @ 10 MCG/MIN 9. 37 mls/hr IV Q24H [facility] Rx#: [id number] Zosyn 2.25 gm In Dextrose 5% in 0 / 0 Water 50 ml @ 100 mls/hr IV Q12H [facility] Rx#:[id number] Oral 230 / 230 Other: # Bowel Movements 1 1 Medical - DS: Data Labs on day of discharge: Labs from last 24 hours 09/01/17 09/01/17 03:46 03:46 WBC 7.1 RBC 3.48 L Hgb 12.4 L Hct 36.4 L MCV 104.5 H MCH 35.6 H MCHC 34.0 RDW 16.7 H Plt Count 182 MPV 8.4 Total Counted 100 Seg Neutrophils % 65 Band Neutrophils % 1 Lymphocytes % 21 Monocytes % (Manual) 7 Eosinophils % (Manual) 6 Platelet Estimate Normal RBC Morphology Abnorm A Anisocytosis 1+ A Macrocytosis 1+ A Sodium 136 Potassium 4.8 Chloride 93 L Carbon Dioxide 23 Anion Gap 20.0 H BUN 26 H Creatinine 6.3 H* GFR Calculation 9 Glucose 89 Calcium 8.2 L Total Bilirubin 0.4 AST 6 ALT 7 Alkaline Phosphatase 78 Total Protein 6.0 Albumin 3.1 L Globulin 2.9 Albumin/Globulin Ratio 1.1 Preliminary micro results at discharge 08/29/17 16:26 Blood Culture - Preliminary Blood 08/29/17 16:39 Blood Culture - Preliminary Blood September 01: Echocardiogram: Report pending Chest x-ray: Shows only minor bibasilar atelectasis. Double-lumen catheter tip overlies the right atrium. The heart is mildly enlarged but unchanged. Mediastinum shows slight widening which is unchanged. Sinus CT: IMPRESSION: Moderate mucosal thickening in the left frontal and all ethmoid sphenoid and maxillary air cells with small air-fluid levels in the sphenoid sinuses all compatible with sinusitis. Infundibular narrowing - both anterior ostiomeatal complexes which may impede maxillary sinus drainage. 6 mm radiolucent focus about the root of the right first maxillary incisor. This may represent an odontogenic abscess. August 29: Blood cultures are negative so far. MRSA screen was negative. EKG: Shows normal sinus rhythm at a rate of 61, with nonspecific ST-T changes. Chest x-ray: Showed mild stable cardiomegaly, minor bibasilar atelectasis. Medical - DS: A/P - Patient/Caregiver Discharge Instructions Activity: increase activity as tolerated Diet: Renal Additional Instructions: 1. Sepsis. You presented with severe infection and hypotension. Source of this is not certain, but your sinus infection or possible dental abscess may have played a role. Next -We will start you on oral Augmentin to cover both her sinuses and your teeth. Please take until gone. -We will also prescribe Mucinex and Flonase, to help promote drainage of the sinuses. -You could also try an [id number] nasal irrigation system, which can also help promote drainage. There are available at most drug stores. -Please follow-up with a dentist for further evaluation of your teeth. They should especially look at the root of your right first maxillary incisor, to rule out abscess. 2. Hypotension. This has been quite severe in the hospital, and is also associated with significant bradycardia (slow heart rate). You should have follow-up evaluation with a environmental specialist, as you may well need a pacemaker which could help support both heart rate and blood pressure. Dr. Tony has also suggested taking midodrine which can also help support blood pressure. Low blood pressures increase the risk of not enough oxygen getting to your brain and other vital organs, and could cause fainting, stroke, heart attack. 3. Renal failure. Please follow-up with Dr. Tony as scheduled. Prescriptions: Amoxicillin/Potassium Clav [Augmentin] 875 mg PO Q12H #14 tab Fluticasone Propionate [Flonase] 1 spray NS BID #1 spray.danie guaiFENesin [Mucinex] 600 mg PO BIDP PRN #60 tab.sr.12h PRN Reason: Congestion - Follow up Plan Follow up with: Alexei Langley [Primary Care Provider] - Wilaim Tony MD [Physician] - Disposition: Home, Self-Care Prognosis: Fair Rehab Potential: Fair I certify that the patient requires SNF services: No Overall status at discharge: patient is progressing back to baseline Medical - DS: Qual - VTE Deep Vein Thrombosis/Pulmonary Embolism Present on Admission: Yes
[2017-09-01] MEDS ORDERED: GABAPENTIN 400 MG CAPSULE PO SCH (21:00)
[2017-09-01] MEDS ORDERED: SEVELAMER 800 MG TABLET PO SCH (21:00)
[2017-09-01] MEDS ORDERED: CINACALCET 30 MG TABLET PO SCH (21:00)
[2017-09-01] MEDS ORDERED: clonazePAM 0.5 MG TABLET PO SCH (21:00)
[2017-09-01] MEDS ORDERED: CALCIUM CARBONATE 500 MG TAB.CHEW CHEWED SCH (21:00)
[2017-09-02] MEDS ORDERED: SEVELAMER HCL 400 MG PO SCH (09:00)
== END 2017-09-01 20:47 | disposition home or self-care (01) | DRG 871 ==
LOC: ED 15:46 → SUATTDRO 20:10 → ICU 20:10
PROVIDERS: ADMIT Internal Medicine; ATTEND Internal Medicine

== ENCOUNTER 2018-01-18 16:34 | Observation (INO) ==
--- NOTE | 2018-01-18 18:09 | Emergency Department Note ---
Recheck HPI - General Chief Complaint: Recheck/Abnormal Lab/Rx Stated Complaint: Sent here by Dr Tony Time Seen by Provider: 01/18/18 16:40 Source: patient Mode of arrival: ambulatory - History of Present Illness HPI Narrative: Sent to ER after today's potassium 7.7. Patient has not had dialysis for 2 weeks due to a combination of factors (missed appts, refusal or inability to come in the morning, falling out with persons doing dialysis, etc.). Denies any symptoms or problems. - Related Data Home Medications Medication Instructions Recorded Confirmed Gabapentin 400 mg PO HS 08/29/17 08/29/17 HYDROcodone/ACETAMINOPHEN [[place] 2 each PO Q8HP PRN 08/29/17 08/29/17 10-325 Tablet] Sevelamer HCl [Renagel] 4,000 mg PO HS 08/29/17 09/01/17 Tums 1,000 mg PO HS 08/29/17 08/29/17 clonazePAM [Clonazepam] 1 mg PO HS 08/29/17 08/29/17 Cinacalcet [Sensipar] 60 mg PO HS 09/01/17 09/01/17 Previous Rx's Medication Instructions Recorded Amoxicillin/Potassium Clav 875 mg PO Q12H #14 tab 09/01/17 [Augmentin] Fluticasone Propionate [Flonase] 1 spray NS BID #1 spray.danie 09/01/17 guaiFENesin [Mucinex] 600 mg PO BIDP PRN #60 tab.sr.12h 09/01/17 Allergies Allergy/AdvReac Type Severity Reaction Status Date / Time diphenhydramine AdvReac Intermediate Swelling Verified 01/18/18 16:39 [From Benadryl] Procaine [From Novocain] AdvReac Intermediate Swelling Verified 01/18/18 16:39 Midodrine AdvReac Mild Hypotension Verified 01/18/18 16:39 morphine AdvReac Mild Vomiting Verified 01/18/18 16:39 Opioids - Morphine Analogues AdvReac Mild Vomiting Verified 01/18/18 16:39 Review of Systems Review of Systems: No fevers or chills or sweats. No chest pain or palpitations. No shortness of breath. No abdominal pain. No headaches or dizziness or mental dysfunction. No anxiety. Some depression with a history of posttraumatic stress disorder. He is uncertain of the cause of his chronic renal failure needing dialysis. Past Medical History - Past Medical History Medical history: Reports: peripheral artery disease, renal disease (on dialysis) , other (abdominal abscess, hypotension, mini strokes). Denies: cancer, coronary artery disease, DM, hypertension, myocardial infarction Psychiatric history: Reports: PTSD. Denies: anxiety Surgical history ED: Reports: other (dialysis catheter placement) - Social History smoking status: Smokeless tobacco Alcohol use: Reports: Rarely Drug use: Reports: none. Denies: marijuana Physical Exam Limitations: no limitations General appearance: alert, in no apparent distress Head: atraumatic, normocephalic Eye: Present: EOMI Neck: Present: trachea midline. Absent: lymphadenopathy, thyromegaly Respiratory: Absent: respiratory distress Neurological: Present: alert, oriented X3 Psychiatric: Present: normal affect, normal mood Skin: Present: warm, dry Course Vital Signs Temperature 97.4 F 01/18/18 16:35 Pulse Rate 66 01/18/18 16:35 Respiratory Rate 16 01/18/18 16:35 Blood Pressure 112/72 01/18/18 16:35 Pulse Oximetry (%) 99 01/18/18 16:35 Temperature 97.4 F 01/18/18 16:35 Pulse Rate 66 01/18/18 16:35 Respiratory Rate 16 01/18/18 16:35 Blood Pressure 112/72 01/18/18 16:35 Pulse Oximetry (%) 99 01/18/18 16:35 Recheck/Abnormal Lab/Rx - MDM Narrative Medical decision making narrative: Case discussed with Dr. Tony. EKG is without hyperacute T waves and with some bradycardia at 51. Case discussed with hospitalist and will do hyperkalemia protocol and patient will be admitted for dialysis tonight. Disposition Pt seen by MANAGER LPN/PA only: No Clinical Impression: Hyperkalemia CRF (chronic renal failure) Qualifiers: Chronic kidney disease stage: stage 5 Qualified Code(s): N18.5 - Chronic kidney disease, stage 5 Disposition: Home, Self-Care Condition: Serious Referrals: Alexei Langley [Primary Care Provider] -
[2018-01-18] MEDS ORDERED: CALCIUM CHLORIDE 1,000 MG/10 ML SYRINGE IV ONE (18:15)
[2018-01-18] MEDS ORDERED: DEXTROSE 50% 50 ML VIAL IV ONE (18:15)
[2018-01-18] MEDS ORDERED: INSULIN REGULAR, HUMAN 1 UNIT/0.01 ML UNIT IV ONE (18:15)
[2018-01-18] MEDS ORDERED: SODIUM POLYSTYRENE SULFONATE 15 GM/60 ML SUSPENSION PR ONE (18:15)
[2018-01-18] MEDS ORDERED: ACETAMINOPHEN 325 MG TABLET PO PRN (20:11)
[2018-01-18] MEDS ORDERED: ONDANSETRON 4 MG/2 ML VIAL IV PRN (20:11)
[2018-01-18] MEDS ORDERED: SENNOSIDES/DOCUSATE SODIUM 1 TAB TABLET PO SCH (21:00)
[2018-01-18] MEDS ORDERED: DOCUSATE SODIUM 100 MG CAPSULE PO SCH (21:00)
[2018-01-18] MEDS ORDERED: HEPARIN 5,000 UNIT/ML VIAL SQ SCH (21:00)
--- NOTE | 2018-01-18 21:26 | Internal Med History&Physical ---
Medical - H&P: HPI Patient information: Note initiated : 01/18/18 at 9:26 pm Service Date, if different from initiated Date: [] Patient: Jd Morris a 57 y/o M admitted on 01/18/18 for Sent here by Dr Tony. Chief Complaint: [] Chief complaint: delayed potassium History of present illness: Mr. Morris is a 57 year old M referral from Dr. Tony's office with hyperkalemia 7.7. Patient has been intermittently missing dialysis. His last dialysis was 3 days ago. He has had a history of noncompliance and an abrasive relationship with dialysis office leading to frequent missed dialysis. he did not have any symptoms. He was directed to the ER for admission initiation emergent hemodialysis patient was rapidly started on hypokalemia protocol. Patient has been refusing admission and has been insisting that he would leave right after hemodialysis. However hospitalist service was consulted to facilitate admission. During discussions with patient he is agreeable to undergoing hemodialysis but given his prior history of noncompliance he may likely leave right after hemodialysis. At this time will be admitted to telemetry. Case was discussed with Dr. Tony nephrology who would initiate emergent hyperkalemia protocol. patient denies fever chills chest pain palpitations and headache. he denies consuming potassium rich diet. he denies shortness of breath. He does endorse 2 rapid ounces right vision loss that started 4 days ago. Per patient she has seen utility aide along with brain MRI. However at this time again he refuses further evaluation despite insistence. it appears very likely that the patient would not stay after hemodialysis to continue further workup for his vision loss. Review of systems 10 point review systems was performed and is negative except as discussed above Medical - H&P: PMH Medical history: End-stage renal disease on hemodialysis. He dialyzes through a right sided HD catheter that has been in place since 2009 on Thursday, , Thursday. Followed by Dr. Tony. Prior history of peritoneal dialysis with associated peritonitis with persistent sterile fluid collection over the liver Labile blood pressures with reported history of peripheral vascular disease Epilepsy, not on antiepileptic medication History of TIAs Surgical history: Hernia repair Multiple procedures for catheter placements Pertinent family history: noncontributory Social history: reviewed from prior medical records He lives alone. 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 denies tobacco or recreational drug use. He rarely drinks alcohol. He states his [employer] research chief engineer, Shyla Spencer, or his oldest granddaughter, Marilyn Quintana, would be his surrogate medical decision makers. He does not know how to get a hold of his granddaughter. Medical - H&P: Meds Home Medications Medication Instructions Recorded Confirmed Type Gabapentin 400 mg PO HS 08/29/17 08/29/17 History HYDROcodone/ACETAMINOPHEN [[place] 2 each PO Q8HP PRN 08/29/17 08/29/17 History 10-325 Tablet] Sevelamer HCl [Renagel] 4,000 mg PO HS 08/29/17 09/01/17 History Tums 1,000 mg PO HS 08/29/17 08/29/17 History clonazePAM [Clonazepam] 1 mg PO HS 08/29/17 08/29/17 History Amoxicillin/Potassium Clav 875 mg PO Q12H #14 tab 09/01/17 Rx [Augmentin] Cinacalcet [Sensipar] 60 mg PO HS 09/01/17 09/01/17 History Fluticasone Propionate [Flonase] 1 spray NS BID #1 spray.danie 09/01/17 Rx guaiFENesin [Mucinex] 600 mg PO BIDP PRN #60 tab.sr.12h 09/01/17 Rx Allergies Allergy/AdvReac Type Severity Reaction Status Date / Time diphenhydramine AdvReac Intermediate Swelling Verified 01/18/18 16:39 [From Benadryl] Procaine [From Novocain] AdvReac Intermediate Swelling Verified 01/18/18 16:39 Midodrine AdvReac Mild Hypotension Verified 01/18/18 16:39 morphine AdvReac Mild Vomiting Verified 01/18/18 16:39 Opioids - Morphine Analogues AdvReac Mild Vomiting Verified 01/18/18 16:39 Medical - H&P: Exam - Constitutional Vitals: Temp Pulse Resp BP Pulse Ox 97.4 F 51 L 12 108/73 100 01/18/18 16:35 01/18/18 19:38 01/18/18 19:38 01/18/18 19:31 01/18/18 19:38 General appearance: average body habitus, no acute distress Exam: alert oriented right eye vision loss no ear discharge oral cavity dry Neck:no Lymphadenopathy S1 and S2 regular rhythm abdomen soft lower extremity no cyanosis clubbing Skin no suspicious lesion Psych anxious but alert Neuro nonfocal Medical - H&P: Reslt - Labs CBC & Chem 7: 01/18/18 23:05 Medical - H&P: A/P (1) Hyperkalemia Status: Acute ' * Critical hyperkalemia-K 7.7 . nephrology consulted. On hyper kalemia protocol. Emergent hemodialysis * ESRD on HD * Ac onset right-sided visual loss-patient refusing further workup. * Neuropathy on gabapentin * Anxiety disorder on clonazepam * full code Plan * Telemetry admitted in light of critical hyperkalemia * pre-existing medical condition management as above * It is very likely the patient will leave AMA right after hemodialysis however if he chooses to stay we will initiate further workup for right eye vision loss
[2018-01-18] MEDS ORDERED: 0.9 % SODIUM CHLORIDE 10 ML SYRINGE IV SCH (22:00)
[2018-01-19 00:36] LABS: Blood Urea Nitrogen 74 mg/dl (6-20)
[2018-01-19] MEDS ORDERED: MULTIVIT,THER IRON,CA,FA & MIN 1 TABLET PO SCH (09:00)
== END 2018-01-19 00:26 | disposition left against medical advice (07) ==
LOC: ED 16:34 → ICU 19:40 → INTOOBSV 19:40
PROVIDERS: ADMIT Internal Medicine; ATTEND Internal Medicine